=== PATIENT | female | born 1945 | race Caucasian/White ===

== ENCOUNTER → 2016-07-08 | Outpatient (CLI) | payer MEDICARE ==
[2016-07-08 10:45] LABS: Creatine Kinase 188 U/L (30-135)
[2016-07-08 13:13] LABS: Vitamin B12 452 pg/mL
== END | disposition home or self-care (01) ==
LOC: LABWHC1 09:48
PROVIDERS: ATTEND Psychiatry & Neurology Neurology
DX: E53.9 Vitamin B deficiency, unspecified (principal); R94.8 Abnormal results of function studies of other organs and systems
CPT/HCPCS: 36415; 82550; 82607

== ENCOUNTER → 2016-08-12 | Outpatient (CLI) | payer MEDICARE | END | disposition home or self-care (01) | LOC: LABWHC1 07:13 | PROVIDERS: ATTEND Psychiatry & Neurology Neurology | DX: M60.9 Myositis, unspecified (principal) | CPT/HCPCS: 36415; 82550 ==

== ENCOUNTER → 2016-09-30 | Outpatient (CLI) | payer MEDICARE | LOC: LABWHC1 08:25 | PROVIDERS: ATTEND Psychiatry & Neurology Neurology | DX: M60.9 Myositis, unspecified (principal) | CPT/HCPCS: 36415; 82550 ==

== ENCOUNTER → 2016-10-17 | Outpatient (CLI) | payer MEDICARE ==
--- NOTE | 2016-10-18 08:12 | US ---
EXAMINATION TYPE: US kidneys/renal and bladder DATE OF EXAM: 10/17/2016 4:45 PM COMPARISON: NONE HISTORY: 71-year-old female with N39.0 FREQ AND RECURRENT URINATION. FINDINGS: VENEREAL DISEASE CONTROL HEAD NOTES: Large body habitus. This would cause technical limitations. Right Kidney: 10.9 X 4.6 X4.6 cm without hydronephrosis. Left Kidney: 10.8 x 4.3 x 4.8 cm with mild pelviectasis but no juan calyceal dilatation. There is abnormally increased Post Void Residual Volume: 173 mL. On post void image, there is a 1.2 x 0.9 x 2.5 cm mural based structure seen along the left posterior bladder base that shows no interna l vascularity. Both ureteral jets are seen. IMPRESSION: 1. Mild pelviectasis on the left without juan hydronephrosis on either side. 2. Findings suggest urinary retention with a postvoid bladder volume of 173 mL. 3. On the post void images, there is a 2.5 cm mural based structure along the left posterior bladder base. This area seems to persist arguing against artifact. Some debris is possible. Correlate with ur inalysis and urine cytology to exclude the possibility of a urothelial neoplasm. Direct visualization as indicated.
== END | disposition home or self-care (01) ==
LOC: RADUSWWP 16:06
PROVIDERS: ATTEND Internal Medicine
DX: N28.89 Other specified disorders of kidney and ureter (principal); R93.41 Abnormal radiologic findings on diagnostic imaging of renal pelvis, ureter, or bladder; N39.0 Urinary tract infection, site not specified
CPT/HCPCS: 76770

== ENCOUNTER → 2017-12-16 | Outpatient (CLI) | payer MEDICARE ==
[2017-12-16 13:45] VITALS: BP 147/86; PULSE 69; RESP 18; TEMP 98; BMI 39.1
--- NOTE | 2017-12-16 14:27 | P.HPOB ---
History of Present Illness H&P Date: 12/16/17 Chief Complaint: The patient is here for her routine gynecologic exam and mammogram. This is a 72-year-old with an LMP [id number]. The patient has been having frequent urinary tract infections about every 1 to 2 months. She states it starts with a low back ache then urinary frequency and ,if allowed to progress , can cause dysuria. She is otherwise without complaints. She denies any postmenopausal bleeding. She is not sexually active. Review of Systems She has lost about 16 pounds over the last 2 years. She denies respiratory, cardiac and G.I. problems. She denies maltreatment or problems with falling. : she denies any significant problems with urinary leakage. But has had frequent urinary tract infections as above. Past Medical History Past Medical History: Asthma, Diabetes Mellitus (2), GERD/Reflux, Hyperlipidemia , Hypertension Additional Past Medical History / Comment(s): Osteopenia, seasonal allergies. 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 History of Any Multi-Drug Resistant Organisms: None Reported Past Surgical History: Appendectomy, Cholecystectomy, Tonsillectomy Additional Past Surgical History / Comment(s): carpal tunnel. Colonoscopy 2011. Past Anesthesia/Blood Transfusion Reactions: No Reported Reaction Past Psychological History: No Psychological Hx Reported Smoking Status: Never smoker Past Alcohol Use History: None Reported Past Drug Use History: None Reported Additional History: She is single and is not sexually active. She is a retired schoolteacher. - Past Family History Father Family Medical History: Diabetes Mellitus, Myocardial Infarction ([place]) Additional Family Medical History / Comment(s): Parkinsons, Alzhiemers Mother Family Medical History: Cancer Additional Family Medical History / Comment(s): lung cancer Medications and Allergies Home Medications Medication Instructions Recorded Confirmed Type Baclofen [Lioresal] 10 mg PO DAILY 12/16/17 12/16/17 History Budesonide/Formoterol Fumarate 1 puff INHALATION BID 12/16/17 12/16/17 History [Symbicort 80-4.5 Mcg Inhaler] Fluticasone Furoate [Flonase 1 spray EA NOSTRIL BID 12/16/17 12/16/17 History Sensimist] Levocetirizine Dihydrochloride 5 mg PO DAILY 12/16/17 12/16/17 History [Xyzal] Ramipril 10 mg PO DAILY 12/16/17 12/16/17 History Simvastatin [Zocor] 20 mg PO DAILY 12/16/17 12/16/17 History metFORMIN HCL [Glucophage] 500 mg PO TID 12/16/17 12/16/17 History sitaGLIPtin [Januvia] 100 mg PO DAILY 12/16/17 12/16/17 History Allergies Allergy/AdvReac Type Severity Reaction Status Date / Time codeine Allergy Rash/Hives Verified 12/16/17 13:41 Penicillins Allergy Swelling Verified 12/16/17 13:41 Sulfa (Sulfonamide Allergy Rash/Hives Verified 12/16/17 13:41 Antibiotics) Exam - Vital Signs Vital signs: Vital Signs Temp Pulse Resp BP 12/16/17 13:41 98 F 69 18 147/86 Intake and Output 12/15/17 12/16/17 12/16/17 22:59 06:59 14:59 Other: Weight 97.069 kg Height 5'2", BMI 39.1. This is a well-developed well-nourished heavyset white female who is alert and oriented times 3 in no acute distress. HEENT: Within normal limits. NECK: Supple without mass or thyromegaly. CHEST AND LUNGS: Clear to auscultation. HEART: Regular rate and rhythm. BREASTS: Are without mass or discharge. AXILLARY EXAM: Negative for adenopathy. BACK: Negative for CVA tenderness. ABDOMEN: Soft, mildly obese, nontender, without palpable masses. PELVIC EXAM: Normal external genitalia with mild atrophy. Cervix and vagina appear normal with mild atrophy. There is no unusual discharge. There is no evidence of prolapse. The uterus is midposition, nongravid size and nontender. There are no palpable adnexal masses or tenderness. RECTAL EXAM: rectovaginal exam is negative for mass or tenderness and is negative for occult blood. EXTREMITIES: Nontender. IMPRESSION: 1. 72-year-old menopausal female with normal gynecologic exam. 2. Frequent urinary tract infections. 3. History of osteopenia. Status post 8 years bisphosphonate use in the past. PLAN: 1. Pap smear was performed. 2. Breast awareness was discussed. 3. screening Mammogram will be done today. 4. Osteoporosis prevention was discussed. I've recommended bone density screening. She would liked to do this next year. 5. We've discussed the importance of not holding urine too long. I also recommended that she spent more time on the toilet when she does urinate to try to empty more completely with relaxation and not bearing down. She will also try to identify any activities this seem to be associated with UTIs. We can consider prophylactic macrodantin if such an activity is identified. 6. She will return in one year.
--- NOTE | 2017-12-18 12:11 | MM ---
Reason for exam: screening (asymptomatic). Last mammogram was performed 2 years and 8 months ago. History: Patient is postmenopausal. Family history of breast cancer in sister at age 65. Physical Findings: A clinical breast exam by your physician is recommended on an annual basis and results should be correlated with mammographic findings. MG 3D Screening Mammo W/Cad Bilateral CC and MLO view(s) were taken. Prior study comparison: April 07, 2015, right breast MG work up mamm w CAD RT. April 04, 2015, bilateral MG screening mammo w CAD. Focal asymmetry in the right middle MLO view. No significant changes when compared with prior studies. ASSESSMENT: Benign, BI-RAD 2 RECOMMENDATION: Routine screening mammogram of both breasts in 1 year.
== END | disposition home or self-care (01) ==
LOC: WWCWWP 13:17
PROVIDERS: ATTEND Obstetrics & Gynecology
DX: Z12.31 Encounter for screening mammogram for malignant neoplasm of breast (principal)
CPT/HCPCS: 77063; 77067

== ENCOUNTER → 2018-08-10 | Outpatient (CLI) | payer MEDICARE ==
--- NOTE | 2018-08-10 14:13 | US ---
EXAMINATION TYPE: US kidneys/renal and bladder DATE OF EXAM: 08/10/2018 COMPARISON: 10/17/2016 ultrasound CLINICAL HISTORY: N39.0 Urinary tract infection R31.9 Hematuria. Diabetic. Patient stated had gross h ematuria 06-23-18. EXAM MEASUREMENTS: Right Kidney: 11.0 x 5.3 x 4.6 cm Left Kidney: 10.6 x 5.5 x 4.0 cm Post Void Residual Volume: 74.3 mL Right Kidney: No hydronephrosis or masses seen; small amount of free fluid seen adjacent to right mich al mid periphery and may be sonographic "sweat sign" suggesting renal failure Left Kidney: left lower pole exophytic simple cyst seen = 1.3 x 1.4 x 1.1cm . Not identified previous ly. Bladder: wnl Bilateral Jets seen: not seen after 3 minute observation Normal Post Void Residual: no as volume is greater than 50.0ml. There is no evidence for hydronephrosis at this point in time. No nephrolithiasis is seen. The urina ry bladder is anechoic. IMPRESSION: 1. Small amount of fluid adjacent to the right kidney. This finding has been associated with renal fa ilure. Correlate with laboratory results. 2. Simple cyst lower pole left kidney
== END | disposition home or self-care (01) ==
LOC: RADUSWWP 10:53
PROVIDERS: ATTEND Urology
DX: N28.1 Cyst of kidney, acquired (principal); N39.0 Urinary tract infection, site not specified; Z88.2 Allergy status to sulfonamides; Z88.5 Allergy status to narcotic agent; Z88.0 Allergy status to penicillin
CPT/HCPCS: 76770

== ENCOUNTER → 2018-10-20 | Outpatient (CLI) | payer MEDICARE ==
[2018-10-20 16:23] LABS: HCT 50.1 % (34.0-46.0); HGB 15.8 gm/dL (11.4-16.0); Hypochromasia Slight; MCH 29.1 pg (25.0-35.0); MCHC 31.5 g/dL (31.0-37.0); MCV 92.4 fL (80.0-100.0); Mean Platelet Volume 8.4; Platelet Count 303 k/uL (150-450); RBC 5.43 m/uL (3.80-5.40); RDW 13.5 % (11.5-15.5); WBC 17.2 k/uL (3.8-10.6)
[2018-10-20 16:35] LABS: Appearance,Urine Clear (Clear); Bilirubin,Urine Negative (Negative); Blood,Urine Negative (Negative); Color,Urine Yellow; Glucose,Urine (UA) Negative (Negative); Ketones,Urine Negative (Negative); Leukocyte Esterase,Urine Moderate (Negative); Mucus,Urine Rare /hpf; Nitrite,Urine Negative (Negative); PH, Urine 5.5 (5.0-8.0); Protein,Urine Negative (Negative); Specific Gravity,Urine 1.022 (1.001-1.035); Squamous Epithelial Cell,Urine 2 /hpf (0-4); Urobilinogen,Urine <2.0 mg/dL (<2.0); WBC,Urine 2 /hpf (0-5)
[2018-10-20 16:41] LABS: ALT 29 U/L (9-52); AST 29 U/L (14-36); Albumin 4.4 g/dL (3.5-5.0); Alkaline Phosphatase 78 U/L (38-126); Anion Gap 9 mmol/L; Blood Urea Nitrogen 24 mg/dL (7-17); Calcium 10.8 mg/dL (8.4-10.2); Carbon Dioxide 26 mmol/L (22-30); Chloride 102 mmol/L (98-107); Glucose 178 mg/dL (74-99); Potassium 5.3 mmol/L (3.5-5.1); Sodium 137 mmol/L (137-145); Total Bilirubin 0.3 mg/dL (0.2-1.3)
[2018-10-20 16:42] LABS: Prothrombin Time 10.3 sec (9.0-12.0)
[2018-10-20 16:45] LABS: Partial Thromboplastin Time 21.8 sec (22.0-30.0)
== END | disposition home or self-care (01) ==
LOC: LABPAT 15:32
PROVIDERS: ATTEND Orthopaedic Surgery
DX: Z01.818 Encounter for other preprocedural examination (principal); Z01.812 Encounter for preprocedural laboratory examination; Z79.01 Long term (current) use of anticoagulants
CPT/HCPCS: 36415; 80053; 81001; 85027; 85610; 85730; 87070; 93005

== ENCOUNTER → 2019-01-25 | Outpatient (CLI) | payer MEDICARE | END | disposition home or self-care (01) | DX: Z53.9 Procedure and treatment not carried out, unspecified reason (principal) ==

== ENCOUNTER → 2019-01-26 | Outpatient (CLI) | payer MEDICARE ==
[2019-01-26 11:45] LABS: Basophils # (A) 0.1 k/uL (0-0.2); Basophils % (A) 1 %; Eosinophils # (A) 0.3 k/uL (0-0.7); Eosinophils % (A) 3 %; HCT 48.5 % (34.0-46.0); HGB 15.3 gm/dL (11.4-16.0); Lymphocytes # (A) 2.7 k/uL (1.0-4.8); Lymphocytes % (A) 29 %; MCH 29.2 pg (25.0-35.0); MCHC 31.6 g/dL (31.0-37.0); MCV 92.5 fL (80.0-100.0); Mean Platelet Volume 8.8; Monocytes # (A) 0.6 k/uL (0-1.0); Monocytes % (A) 7 %; Neutrophils # (A) 5.4 k/uL (1.3-7.7); Neutrophils % (A) 58 %; Platelet Count 203 k/uL (150-450); RBC 5.24 m/uL (3.80-5.40); RDW 15.4 % (11.5-15.5); WBC 9.3 k/uL (3.8-10.6)
[2019-01-26 19:13] LABS: African American GFR (CKD) 73.5 (60.0-200.0); Anion Gap 12.4 mmol/L (4.00-12.00); BUN/Creat Ratio 21.11 Ratio (12.00-20.00); Carbon Dioxide 25.6 mmol/L (21.6-31.8); Non-African American GFR(CKD) 63.4 (60.0-200.0); Potassium 4.7 mmol/L (3.5-5.5)
== END | disposition home or self-care (01) ==
LOC: LABWHC1 10:44
PROVIDERS: ATTEND Obstetrics & Gynecology
DX: Z01.812 Encounter for preprocedural laboratory examination (principal)
CPT/HCPCS: 36415; 80048; 85025; 86850; 86900; 86901

== ENCOUNTER 2019-02-04 05:59 | Day surgery (SDC) | payer MEDICARE ==
[~2019-02-04 05:59] MED LIST: LIDOCAINE 1% 20 ML VIAL (10MG/ML) FOR IV START INTRADERMA PRN; MIDAZOLAM 2 MG/2 ML VIAL IV PRN; SCOPOLAMINE 1.5MG/72HR PATCH TRANSDERM ONE
[2019-02-04] MEDS: LACTATED RINGERS 1,000 ML IV SCH ×2 (06:40→06:44)
[2019-02-04 06:44] LABS: Glucose,Whole Blood 136 mg/dL (75-99)
[2019-02-04] MEDS: DEXAMETHASONE SOD PHOSPHATE 10 MG/ML 1 ML VIAL IV ONE ×2 (06:45→10:25)
[2019-02-04] MEDS: ONDANSETRON 4 MG/2 ML VIAL IVP ONE ×2 (06:45→10:25)
--- NOTE | 2019-02-04 06:58 | P.HPOB ---
History of Present Illness H&P Date: 02/04/19 Chief Complaint: cystocele and recurrent UTI 73 year old presents for [facility] with da manuel, possible anterior repair and diagnostic cystoscopy. She has a second degree cystocele that we believe is causing her to have recurrent UTI's. Review of Systems All systems: negative Constitutional: Denies chills, Denies fever Eyes: denies blurred vision, denies pain Ears, nose, mouth and throat: Denies headache, Denies sore throat Cardiovascular: Denies chest pain, Denies shortness of breath Respiratory: Denies cough Gastrointestinal: Denies abdominal pain, Denies diarrhea, Denies nausea, Denies vomiting Genitourinary: Denies dysuria, Denies hematuria Musculoskeletal: Denies myalgias Integumentary: Denies pruritus, Denies rash Neurological: Denies numbness, Denies weakness Psychiatric: Denies anxiety, Denies depression Endocrine: Denies fatigue, Denies weight change Past Medical History Past Medical History: Asthma, Diabetes Mellitus, GERD/Reflux, Hyperlipidemia, Hypertension, Osteoarthritis ([place]), Thyroid Disorder Additional Past Medical History / Comment(s): Osteopenia, seasonal allergies. HX UTI'S. HAS BLADDER PROLAPSE. History of Any Multi-Drug Resistant Organisms: None Reported Past Surgical History: Appendectomy, Cholecystectomy, Tonsillectomy Additional Past Surgical History / Comment(s): [facility]. Colonoscopy 2011. Past Anesthesia/Blood Transfusion Reactions: Postoperative Nausea & Vomiting (PONV) Smoking Status: Never smoker - Past Family History Father Family Medical History: Diabetes Mellitus, Myocardial Infarction ([place]) Additional Family Medical History / Comment(s): Parkinsons, Alzhiemers Mother Family Medical History: Cancer Additional Family Medical History / Comment(s): lung cancer Sister(s) Family Medical History: Cancer Medications and Allergies Home Medications Medication Instructions Recorded Confirmed Type Baclofen [Lioresal] 10 mg PO HS 12/16/17 02/04/19 History Levocetirizine Dihydrochloride 5 mg PO HS 12/16/17 02/04/19 History [Xyzal] Ramipril 10 mg PO DAILY 12/16/17 02/04/19 History Simvastatin [Zocor] 40 mg PO DAILY 12/16/17 02/04/19 History metFORMIN HCL [Glucophage] 1,000 mg PO DAILY 12/16/17 02/04/19 History sitaGLIPtin [Januvia] 100 mg PO DAILY 12/16/17 02/04/19 History Aspirin EC [Ecotrin Low Dose] 81 mg PO DAILY 10/22/18 02/04/19 History Aspirin/Acetaminophen/Caffeine 1 each PO DAILY PRN 10/22/18 02/04/19 History [Excedrin Migraine Caplet] Budesonide-Formot 160-4.5 Mcg 2 puff INHALATION BID 10/22/18 02/04/19 History [Symbicort 160-4.5 Mcg Inhaler] Calcium Carbonate/Vitamin D3 1 each PO BID 10/22/18 02/04/19 History [Calcium 600-Vit D3 400 Tablet] Cranberry 4200 Mg 3 cap PO BID 10/22/18 02/04/19 History Cyanocobalamin (Vitamin B-12) 1,000 mcg PO MOWEFR 10/22/18 02/04/19 History [Vitamin B-12] Ibuprofen [Motrin Ib] 400 mg PO Q8H PRN 10/22/18 02/04/19 History Ipratropium [place] 0.06%Nasal 2 spray EA NOSTRIL BID 10/22/18 02/04/19 History [Atrovent Nasal 0.06%] L.acidoph,Paracasei, B.lactis 1 each PO DAILY 10/22/18 02/04/19 History [Probiotic] Levothyroxine Sodium [Synthroid] 50 mcg PO DAILY 10/22/18 02/04/19 History Multivitamins, Thera [Multivitamin 1 tab PO DAILY 10/22/18 02/04/19 History (formulary)] Natural Calm (Magnesium) 1 tsp PO HS 10/22/18 02/04/19 History [place]-3 Fatty Acids/Fish Oil [Fish 1 each PO BID 10/22/18 02/04/19 History Oil 1,000 mg Softgel] Ranitidine HCl [Zantac] 150 mg PO DAILY 10/22/18 02/04/19 History Acetaminophen Tab [Tylenol Tab] 650 mg PO Q4H PRN 01/28/19 02/04/19 History metFORMIN HCL [Glucophage] 500 mg PO HS 01/28/19 02/04/19 History Allergies Allergy/AdvReac Type Severity Reaction Status Date / Time codeine Allergy Rash/Hives Verified 02/04/19 06:21 Penicillins Allergy Swelling Verified 02/04/19 06:21 Sulfa (Sulfonamide Allergy Rash/Hives Verified 02/04/19 06:21 Antibiotics) Exam Osteopathic Statement: *. No significant issues noted on an osteopathic structural exam other than those noted in the History and Physical/Consult. Vital Signs Temp Pulse Resp BP Pulse Ox 02/04/19 06:26 97.7 F 77 18 155/68 95 HEart: RRR Lungs: CTAB ABdomen: soft, nontender Extremeties: neg alexus's Results Abnormal Lab Results - Last 24 Hours (Table) 02/04/19 Range/Units 06:36 POC Glucose (mg/dL) 136 H (75-99) mg/dL Assessment and Plan (1) Cystocele with uterine prolapse Current Visit: Yes Status: Acute Code(s): N81.4 - UTEROVAGINAL PROLAPSE, UNSPECIFIED SNOMED Code(s): 643032483 Plan: 1. Total Laparoscopic Hysterectomy with Bilateral Salpingo-oopherectomy using da manuel, anterior repair and diagnostic cystoscopy.
[2019-02-04] MEDS ORDERED: CLINDAMYCIN 600 MG in DEXTROSE 5% IN WATER 50 ML IVPB STA ×2 (07:03)
[2019-02-04] MEDS ORDERED: NEOSTIGMINE 1 MG/ML 10 ML VIAL ONE (07:11)
[2019-02-04] MEDS ORDERED: MIDAZOLAM 2 MG/2 ML VIAL ONE (07:11)
[2019-02-04] MEDS ORDERED: ROCURONIUM BROMIDE 10 MG/ML 10 ML VIAL IV ONE (07:11)
[2019-02-04] MEDS ORDERED: PROPOFOL 10 MG/ML 20 ML VIAL IV ONE (07:11)
[2019-02-04] MEDS ORDERED: LIDOCAINE 1% INJ 10MG/ML (20 ML MDV) ONE (07:11)
[2019-02-04] MEDS ORDERED: fentaNYL (PF) 50 MCG/ML 2 ML AMP ONE (07:11)
[2019-02-04] MEDS ORDERED: GLYCOPYRROLATE 0.2 MG/ML 2 ML VIAL ONE (07:11)
[2019-02-04] MEDS ORDERED: BUPIVACAINE (PF) 0.5% 30 ML VIAL SQ ONE (07:45)
[2019-02-04] MEDS ORDERED: BACITRACIN 500 UNIT/GM OINT 28.4 GM TUBE TOPICAL ONE (08:28)
--- NOTE | 2019-02-04 08:58 | P.OP ---
Date of Procedure: 02/04/19 Preoperative Diagnosis: 1. cystocele with uterine prolapse Postoperative Diagnosis: 1. cystocele with uterine prolapse Procedure(s) Performed: Total laparoscopic hysterectomy bilateral salpingo-oophorectomy using da Rio Anesthesia: JAIR Surgeon: Tanvi Sneed Leather Roller #1: Jose Smith Estimated Blood Loss (ml): 5 IV fluids (ml): 1,200 Urine output (ml): 300 Pathology: other (Uterus, cervix, bilateral tubes and ovaries) Condition: stable Disposition: PACU Operative Findings: Grade 2 cystocele with uterine prolapse. After hysterectomy the cystocele was barely a grade 1, therefore, no anterior repair was found to be needed. Normal uterus, tubes, ovaries. Description of Procedure: Patient taken the operating room where general anesthesia was obtained without difficulty. She is prepped and draped in normal sterile fashion dorsal lithotomy position, legs placed in the Kvng stirrups. Weighted speculum placed in the vagina and the anterior lip the cervix was grasped with single-tooth tenaculum. The uterus sounded to 6 cm and the cervix diameter was 2.5 cm. The appropriate manipulator tip and ring were placed on the Agatha manipulator. The Agatha manipulator was then placed in the uterus. Lane catheter was also placed. Attention was then turned to the abdomen and gloves were changed. A 5 mm supraumbilical incision was made the scalpel and a 5 mm optical trocar was placed under direct visualization. 10 cm to the right of this and 2 cm down a 5 mm incision was made and 8 mm da [place] port was placed under direct visualization. Same measurements on the opposite side of the patient's abdomen, the 5 mm incision was made and 8 mm [place] port was placed under direct visualization. In the left upper quadrant a 10 mm incision was made and a 10 mm optical trocar was placed under direct visualization. The 5 mm optical trocar was then replaced with the 8 mm da [place] camera port. The robot was docked on patient's right side. The camera was introduced and then the monopolar curved scissor and [place] bipolar placed under direct visualization. I broke scrub and went to the physician console. The left infundibulopelvic ligament was cauterized with the [place] bipolar and cut with monopolar curved scissors. The left round ligament was cauterized with the [place] bipolar and cut with monopolar curved scissors. The posterior leaf of the broad ligament was taken down using the monopolar curved scissors. Anterior leaf of the broad ligament was then taken down using the monopolar curved scissors. The uterine artery was cauterized with the [place] bipolar and cut with monopolar curved scissors. The bladder flap was then started using the monopolar curved scissors. Attention was then turned to the right side of the patient's anatomy and the right infundibular pelvic ligament was cauterized with the [place] bipolar and cut with monopolar curved scissors. The right round ligament was cauterized with the [place] bipolar and cut with monopolar curved scissors. Posterior leaf of the broad ligament was taken down using the monopolar curved scissors and the anterior leaf was taken down using the monopolar curved scissors. The uterine artery was cauterized the [place] bipolar cut with monopolar curved scissors. The bladder flap was then finished on this side. Anterior colpotomy was made using the monopolar curved scissors. The rest of the uterus was from the vaginal cuff by following the ring around with the monopolar curved scissors through the uterosacral ligaments back to the anterior portion. Once the uterus and cervix were amputated they were pulled through the vaginal cuff. Hemostasis was assured. The instruments were changed for the [place] forcep and the leslie suture cut. The vaginal cuff was then closed using O stratafix barbed suture in a running fashion. Hemostasis was again assured and the pelvis was irrigated. All instruments were removed from the abdomen and the robot was undocked. I scrubbed back in to the procedure. Examination of the vagina now revealed barely a grade 1 cystocele. The removal of the uterus and repair of the vaginal cuff pulled the cystocele up and is no longer grade 2. At this time it was determined that anterior repair was not necessary. I then performed a cystoscopy. There were jets from both ureteral orifices. Catheter was replaced. The abdominal incisions were closed with 4-0 Vicryl in a subcuticular fashion. Patient tolerated the procedure well, sponge and instrument counts correct 2 and she was taken to recovery room in stable con dition condition
[2019-02-04] MEDS: HYDROmorphone 0.5 MG/0.5 ML SYRINGE IVP PRN ×2 (09:01→09:20)
[2019-02-04 09:33] LABS: Glucose,Whole Blood 198 mg/dL (75-99)
[2019-02-04] MEDS ORDERED: HYDROcodone/APAP 5-325MG 1 EACH TAB PO PRN ×2 (09:57)
[2019-02-04] MEDS ORDERED: diphenhydrAMINE 50 MG/ML 1 ML VIAL IVP PRN (09:57)
[2019-02-04] MEDS ORDERED: SIMETHICONE 80 MG CHEWABLE PO PRN (09:57)
[2019-02-04] MEDS ORDERED: METOCLOPRAMIDE 5 MG/ML 2 ML VIAL IVP PRN (09:57)
[2019-02-04] MEDS ORDERED: ONDANSETRON 4 MG/2 ML VIAL IVP PRN (09:57)
[2019-02-04] MEDS: ATORVASTATIN 20 MG TAB PO SCH (11:36)
[2019-02-04] MEDS: metFORMIN 500 MG TAB PO SCH (11:36)
[2019-02-04] MEDS: SENNOSIDES-DOCUSATE SODIUM 1 EACH TAB PO SCH ×2 (11:55→20:40)
[2019-02-04 12:16] VITALS: BMI 37.4
[2019-02-04] MEDS: KETOROLAC 30 MG/ML 1 ML VIAL IVP PRN ×2 (13:32→19:32)
[2019-02-04 14:35] VITALS: RESP 16
[2019-02-04 17:24] LABS: Glucose,Whole Blood 202 mg/dL (75-99)
[2019-02-04] MEDS: INSULIN ASPART (NovoLOG) 100 UNIT/ML VIAL SQ SCH ×2 (17:33→20:39)
[2019-02-04] MEDS: LINAGLIPTIN 5 MG TABLET PO SCH (17:34)
[2019-02-04] MEDS ORDERED: SYMBICORT 160-4.5 MCG INHALER INHALATION SCH ×2 (20:00)
[2019-02-04 20:18] LABS: Glucose,Whole Blood 183 mg/dL (75-99)
[2019-02-04] MEDS: IPRATROPIUM BROMIDE 0.03% EA NOSTRIL SCH (20:41)
[2019-02-04] MEDS ORDERED: LORATADINE 10 MG TAB PO SCH (21:00)
[2019-02-04] MEDS ORDERED: metFORMIN 500 MG TAB PO SCH (21:00)
[2019-02-04] MEDS ORDERED: BACLOFEN 10 MG TAB PO SCH (21:00)
[2019-02-04] MEDS ORDERED: IPRATROPIUM BROMIDE 0.06% NASAL SPRAY (15 ML) EA NOSTRIL SCH (21:00)
[2019-02-05] MEDS: KETOROLAC 30 MG/ML 1 ML VIAL IVP PRN (01:39)
[2019-02-05 06:20] LABS: Glucose,Whole Blood 149 mg/dL (75-99)
[2019-02-05] MEDS ORDERED: LEVOTHYROXINE 50 MCG TAB PO SCH (06:30)
[2019-02-05] MEDS: INSULIN ASPART (NovoLOG) 100 UNIT/ML VIAL SQ SCH (06:37)
[2019-02-05 07:07] LABS: Basophils % (A) 0 %; Eosinophils # (A) 0.1 k/uL (0-0.7); Eosinophils % (A) 1 %; HCT 41.7 % (34.0-46.0); Lymphocytes % (A) 27 %; MCH 28.3 pg (25.0-35.0); MCHC 31.2 g/dL (31.0-37.0); MCV 90.8 fL (80.0-100.0); Mean Platelet Volume 8.5; Monocytes # (A) 0.9 k/uL (0-1.0); Monocytes % (A) 9 %; Neutrophils # (A) 6.6 k/uL (1.3-7.7); Neutrophils % (A) 61 %; Platelet Count 210 k/uL (150-450); RDW 14.1 % (11.5-15.5); WBC 10.9 k/uL (3.8-10.6)
[2019-02-05 08:33] VITALS: BP 149/77; PULSE 60; TEMP 97.7
--- NOTE | 2019-02-05 08:39 | P.DS ---
Providers Date of admission: 02/04/19 Expected date of discharge: 02/05/19 Attending physician: Tanvi Sneed Primary care physician: Raul Carpiooa - Discharge Diagnosis(es) (1) Cystocele with uterine prolapse Current Visit: Yes Status: Resolved (2) History of robot-assisted laparoscopic hysterectomy Current Visit: Yes Status: Acute Hospital Course: Patient presented with cystocele and uterine prolapse. She underwent a total laparoscopic hysterectomy bilateral salpingo-oophorectomy using da Rio and a diagnostic cystoscopy. Postoperatively her pain was minimal and controlled with Toradol. She is ambulating and voiding without difficulty. She was passing flatus and tolerating regular diet. Her incisions are clean, dry, intact. She will be discharged home postoperative day #1 in stable condition to follow-up with me in 4 weeks. Plan - Discharge Summary Discharge Rx Participant: Yes New Discharge Prescriptions: New Ibuprofen [Motrin] 600 mg PO Q6HR PRN #30 tab PRN Reason: Mild Pain Or Fever >= 100.5 HYDROcodone/APAP 5-325MG [[place] 5-325] 1 each PO Q4HR PRN #10 tab PRN Reason: MILD Pain No Action Baclofen [Lioresal] 10 mg PO HS sitaGLIPtin [Januvia] 100 mg PO DAILY metFORMIN HCL [Glucophage] 1,000 mg PO DAILY Simvastatin [Zocor] 40 mg PO DAILY Ramipril 10 mg PO DAILY Levocetirizine Dihydrochloride [Xyzal] 5 mg PO HS Aspirin/Acetaminophen/Caffeine [Excedrin Migraine Caplet] 1 each PO DAILY PRN PRN Reason: MIGRAINES [place]-3 Fatty Acids/Fish Oil [Fish Oil 1,000 mg Softgel] 1 each PO BID Multivitamins, Thera [Multivitamin (formulary)] 1 tab PO DAILY Cyanocobalamin (Vitamin B-12) [Vitamin B-12] 1,000 mcg PO MOWEFR Calcium Carbonate/Vitamin D3 [Calcium 600-Vit D3 400 Tablet] 1 each PO BID Ranitidine HCl [Zantac] 150 mg PO DAILY L.acidoph,Paracasei, B.lactis [Probiotic] 1 each PO DAILY Aspirin EC [Ecotrin Low Dose] 81 mg PO DAILY Budesonide-Formot 160-4.5 Mcg [Symbicort 160-4.5 Mcg Inhaler] 2 puff INHALATION BID Ipratropium [place] 0.06%Nasal [Atrovent Nasal 0.06%] 2 spray EA NOSTRIL BID Levothyroxine Sodium [Synthroid] 50 mcg PO DAILY Natural Calm (Magnesium) 1 tsp PO HS Ibuprofen [Motrin Ib] 400 mg PO Q8H PRN PRN Reason: Pain Cranberry 4200 Mg 3 cap PO BID Acetaminophen Tab [Tylenol Tab] 650 mg PO Q4H PRN PRN Reason: Pain metFORMIN HCL [Glucophage] 500 mg PO HS Discharge Medication List Baclofen [Lioresal] 10 mg PO HS 12/16/17 [History] Levocetirizine Dihydrochloride [Xyzal] 5 mg PO HS 12/16/17 [History] Ramipril 10 mg PO DAILY 12/16/17 [History] Simvastatin [Zocor] 40 mg PO DAILY 12/16/17 [History] metFORMIN HCL [Glucophage] 1,000 mg PO DAILY 12/16/17 [History] sitaGLIPtin [Januvia] 100 mg PO DAILY 12/16/17 [History] Aspirin EC [Ecotrin Low Dose] 81 mg PO DAILY 10/22/18 [History] Aspirin/Acetaminophen/Caffeine [Excedrin Migraine Caplet] 1 each PO DAILY PRN 10/22/18 [History] Budesonide-Formot 160-4.5 Mcg [Symbicort 160-4.5 Mcg Inhaler] 2 puff INHALATION BID 10/22/18 [History] Calcium Carbonate/Vitamin D3 [Calcium 600-Vit D3 400 Tablet] 1 each PO BID 10/22/18 [History] Cranberry 4200 Mg 3 cap PO BID 10/22/18 [History] Cyanocobalamin (Vitamin B-12) [Vitamin B-12] 1,000 mcg PO MOWEFR 10/22/18 [History] Ibuprofen [Motrin Ib] 400 mg PO Q8H PRN 10/22/18 [History] Ipratropium [place] 0.06%Nasal [Atrovent Nasal 0.06%] 2 spray EA NOSTRIL BID 10/22/18 [History] L.acidoph,Paracasei, B.lactis [Probiotic] 1 each PO DAILY 10/22/18 [History] Levothyroxine Sodium [Synthroid] 50 mcg PO DAILY 10/22/18 [History] Multivitamins, Thera [Multivitamin (formulary)] 1 tab PO DAILY 10/22/18 [History] Natural Calm (Magnesium) 1 tsp PO HS 10/22/18 [History] [place]-3 Fatty Acids/Fish Oil [Fish Oil 1,000 mg Softgel] 1 each PO BID 10/22/18 [History] Ranitidine HCl [Zantac] 150 mg PO DAILY 10/22/18 [History] Acetaminophen Tab [Tylenol Tab] 650 mg PO Q4H PRN 01/28/19 [History] metFORMIN HCL [Glucophage] 500 mg PO HS 01/28/19 [History] HYDROcodone/APAP 5-325MG [[place] 5-325] 1 each PO Q4HR PRN #10 tab 02/05/19 [Rx] Ibuprofen [Motrin] 600 mg PO Q6HR PRN #30 tab 02/05/19 [Rx] Follow up Appointment(s)/Referral(s): Tanvi Sneed DO [Doctor of Osteopathic Medicine] - 4 Weeks Discharge Disposition: HOME SELF-CARE
[2019-02-05] MEDS ORDERED: ACETAMINOPHEN TAB 325 MG TAB PO PRN (08:53)
[2019-02-05] MEDS ORDERED: FAMOTIDINE 20 MG TAB PO SCH (09:00)
[2019-02-05] MEDS ORDERED: LISINOPRIL 20 MG TAB PO SCH (09:00)
[2019-02-05] MEDS: SENNOSIDES-DOCUSATE SODIUM 1 EACH TAB PO SCH (09:02)
[2019-02-05] MEDS: IPRATROPIUM BROMIDE 0.03% EA NOSTRIL SCH (09:02)
[2019-02-05] MEDS: metFORMIN 500 MG TAB PO SCH (09:03)
[2019-02-05] MEDS: ATORVASTATIN 20 MG TAB PO SCH (09:04)
[2019-02-05] MEDS: LINAGLIPTIN 5 MG TABLET PO SCH (09:06)
== END 2019-02-05 10:54 | disposition home or self-care (01) ==
LOC: OR 05:59 → 6PED 08:50 → OR 02-05 10:54
PROVIDERS: ATTEND Obstetrics & Gynecology
DX: N81.4 Uterovaginal prolapse, unspecified (principal); J45.909 Unspecified asthma, uncomplicated; K21.9 Gastro-esophageal reflux disease without esophagitis; E78.5 Hyperlipidemia, unspecified; E11.9 Type 2 diabetes mellitus without complications; I10 Essential (primary) hypertension; E03.9 Hypothyroidism, unspecified; Z90.49 Acquired absence of other specified parts of digestive tract; M19.90 Unspecified osteoarthritis, unspecified site; M85.80 Other specified disorders of bone density and structure, unspecified site; Z83.3 Family history of diabetes mellitus; Z82.49 Family history of ischemic heart disease and other diseases of the circulatory system; Z80.1 Family history of malignant neoplasm of trachea, bronchus and lung; Z80.8 Family history of malignant neoplasm of other organs or systems; Z79.84 Long term (current) use of oral hypoglycemic drugs; Z79.82 Long term (current) use of aspirin; Z79.890 Hormone replacement therapy; Z79.51 Long term (current) use of inhaled steroids; Z79.899 Other long term (current) drug therapy; Z88.5 Allergy status to narcotic agent; Z88.0 Allergy status to penicillin; Z88.2 Allergy status to sulfonamides
CPT/HCPCS: 58571; 94640; 85025; 88307; 83036; J2250; J1100; J2710; J2405; J2001; J3010; J1885 ×2; J2704; J1170; 86850; 86900; 86901

== ENCOUNTER → 2020-06-07 | Outpatient (CLI) | payer MEDICARE ==
--- NOTE | 2020-06-12 11:02 | MM ---
Reason for exam: screening (asymptomatic). Last mammogram was performed 2 years and 6 months ago. History: Patient is postmenopausal. Family history of breast cancer in sister at age 65. Physical Findings: A clinical breast exam by your physician is recommended on an annual basis and results should be correlated with mammographic findings. MG Screening Mammo w CAD Bilateral CC and MLO view(s) were taken. Prior study comparison: December 16, 2017, bilateral MG 3d screening mammo w/cad. April 07, 2015, right breast MG work up mamm w CAD RT. The breast tissue is heterogeneously dense. This may lower the sensitivity of mammography. No significant changes when compared with prior studies. ASSESSMENT: Benign, BI-RAD 2 RECOMMENDATION: Routine screening mammogram of both breasts in 1 year.
== END | disposition home or self-care (01) ==
LOC: RADMAMWWP 15:54
PROVIDERS: ATTEND Internal Medicine
DX: Z12.31 Encounter for screening mammogram for malignant neoplasm of breast (principal)
CPT/HCPCS: 77067

== ENCOUNTER → 2021-06-13 | Outpatient (CLI) | payer MEDICARE ==
--- NOTE | 2021-06-14 20:18 | BD ---
EXAMINATION TYPE: Axial Bone Density DATE OF EXAM: 06/13/2021 COMPARISON: 2013 CLINICAL HISTORY: Postmenopausal screening Height: 62 Weight: 183.5 FRAX RISK QUESTIONS: Alcohol (3 or more units per day): no Family History (Parent hip fracture): yes Glucocorticoids (More than 3mos): no (Ex: prednisone, prednisolone, methylprednisolone, dexamethasone, and hydrocortisone). History of Fracture in Adulthood: yes Secondary Osteoporosis: 1. Type 1 Diabetes: no 2. Hyperthyroidism: no 3. Menopause before 45: no 4. Malnutrition: no 5. Chronic liver disease: no Rheumatoid Arthritis: no Current Tobacco Use: no RISK FACTORS HISTORY OF: Surgery to Spine/Hip(right/left)/Wrist (right/left): no Family History of Osteoporosis: no Active: yes Diet low in dairy products/other sources of calcium: yes Postmenopausal woman: yes Take estrogen and/or progesterone medications: yes How lon years Lost more than 2 inches in height since high school: no MEDICATIONS: estrogen Thyroid Medications: yes How Lon year Additional History: EXAM MEASUREMENTS: Bone mineral densitometry was performed using the [facility]. Bone mineral density as measured about the Lumbar spine is: ----- L1-L4(G/cm2): 1.351 T Score Values are as follows: ----- L2: 1.1 ----- L3: 3.0 ----- L4: 1.1 ----- L1-L4: 1.4 Bone mineral density has: increased 0.6 % since study of: 01.18.2014 Bone mineral density about the R hip (g/cm2): 0.945 Bone mineral density about the L hip (g/cm2): .0805 T Score values are as follows: -----R Neck: -0.7 -----L Neck: -1.7 -----R Total: 0.0 -----L Total: -0.5 Bone mineral density has: decreased -2.4 % since study of: 01.18.2014 IMPRESSION: Osteopenia (T Score between -2.5 and -1). There is slightly increased risk of fracture and the patient may be considered for treatment. Re-Screen 2-5 years. NOTE: T-SCORE=SD OF THE YOUNG ADULT MEAN.
--- NOTE | 2021-06-15 12:00 | MM ---
Reason for exam: screening (asymptomatic). Last mammogram was performed 1 year ago. History: Patient is postmenopausal. Family history of breast cancer in sister at age 65. Physical Findings: A clinical breast exam by your physician is recommended on an annual basis and results should be correlated with mammographic findings. MG 3D Screening Mammo W/Cad Bilateral CC, MLO, and XCCL view(s) were taken. Prior study comparison: June 07, 2020, bilateral MG screening mammo w CAD. December 16, 2017, bilateral MG 3d screening mammo w/cad. There are scattered fibroglandular densities. There is chronic nodularity in the right breast. No significant changes when compared with prior studies. ASSESSMENT: Benign, BI-RAD 2 RECOMMENDATION: Routine screening mammogram of both breasts in 1 year.
== END | disposition home or self-care (01) ==
LOC: RADBDWWP 15:01
PROVIDERS: ATTEND Internal Medicine
DX: Z12.31 Encounter for screening mammogram for malignant neoplasm of breast (principal); N95.1 Menopausal and female climacteric states; M85.80 Other specified disorders of bone density and structure, unspecified site
CPT/HCPCS: 77063; 77067; 77080

== ENCOUNTER → 2021-08-07 | Outpatient (CLI) | payer MEDICARE | END | disposition home or self-care (01) | LOC: LABWHC1 14:04 | PROVIDERS: ATTEND Psychiatry & Neurology Neurology | DX: G72.9 Myopathy, unspecified (principal); R25.2 Cramp and spasm | CPT/HCPCS: 36415; 82550 ==

== ENCOUNTER → 2022-12-21 | Outpatient (CLI) | payer MEDICARE ==
[2022-12-21 13:32] LABS: Blood Urea Nitrogen 19.7 mg/dL (9.0-27.0); Carbon Dioxide 22.3 mmol/L (21.6-31.8); Chloride 102 mmol/L (96-109); Potassium 4.1 mmol/L (3.5-5.5); Sodium 140 mmol/L (135-145)
[2022-12-21 13:37] LABS: HCT 43.9 % (37.2-46.3); MCH 28.5 pg (27.0-32.0); MCHC 31.9 d/dL (32.0-37.0); MCV 89.4 FL (80.0-97.0); Mean Platelet Volume 12.3 FL (9.5-12.2); NRBC Per 100 WBC 0 X 10*3/uL (0.00-0.01); Platelet Count 235 X 10*3/uL (140-440); RBC 4.91 X 10*6/uL (4.10-5.20); RDW 14.2 % (11.5-14.5); WBC 10.19 X 10*3/uL (4.50-10.00)
== END | disposition home or self-care (01) ==
LOC: LABWHC1 09:28
PROVIDERS: ATTEND Internal Medicine Interventional Cardiology
DX: Z01.812 Encounter for preprocedural laboratory examination (principal); R06.02 Shortness of breath
CPT/HCPCS: 36415; 80051; 82565; 84520; 85027

== ENCOUNTER 2022-12-27 06:09 | Day surgery (SDC) | payer MEDICARE ==
[2022-12-27] MEDS ORDERED: ATORVASTATIN 80 MG TAB PO STA (06:32)
[2022-12-27] MEDS ORDERED: HEPARIN SODIUM,PORCINE 10,000 UNIT in SODIUM CHLORIDE 0.9% 1,000 ML IRRIGATION PRN (06:32)
[2022-12-27] MEDS ORDERED: SODIUM CHLORIDE 0.9% 1,000 ML in EMPTY BAG 1 BAG IV SCH (06:32)
[2022-12-27] MEDS ORDERED: ALPRAZolam 0.25 MG TAB PO PRN (06:32)
[2022-12-27] MEDS ORDERED: ALPRAZolam 0.5 MG TAB PO PRN (06:32)
[2022-12-27] MEDS ORDERED: HEPARIN SODIUM,PORCINE 2,500 UNIT in SODIUM CHLORIDE 0.9% 250 ML IRRIGATION PRN (06:32)
[2022-12-27] MEDS ORDERED: NITROGLYCERIN SL TABS 0.4 MG TAB SUBLINGUAL PRN (06:32)
[2022-12-27] MEDS ORDERED: ASPIRIN 325 MG TAB PO STA (06:32)
[2022-12-27] MEDS ORDERED: SODIUM CHLORIDE 0.9% 1,000 ML IV ONE (06:35)
[2022-12-27 06:59] LABS: Glucose,Whole Blood 139 mg/dL (70-110)
[2022-12-27] MEDS ORDERED: VERAPAMIL 2.5 MG/ML 2 ML AMP ONE (07:11)
[2022-12-27] MEDS ORDERED: HEPARIN SODIUM 1,000 UN/ML (10ML VL) ONE (07:25)
[2022-12-27] MEDS ORDERED: MIDAZOLAM 2 MG/2 ML VIAL IV ONE ×2 (07:34)
[2022-12-27] MEDS ORDERED: LIDOCAINE 1% INJ 10MG/ML (5 ML VIAL-PF) SQ ONE (07:51)
[2022-12-27] MEDS ORDERED: VERAPAMIL SYRINGE (5 MG/10 ML) INTRAARTER ONE (07:52)
[2022-12-27] MEDS: HEPARIN SODIUM 1,000 UN/ML (10ML VL) IV ONE ×4 (07:52→08:46)
[2022-12-27] MEDS ORDERED: CLOPIDOGREL 75 MG TAB ONE (08:19)
[2022-12-27] MEDS ORDERED: CLOPIDOGREL 75 MG TAB PO ONE (08:24)
[2022-12-27] MEDS ORDERED: IOPAMIDOL-370 100ML BTL INJ ONE ×2 (08:28→08:38)
[2022-12-27] MEDS ORDERED: ACETAMINOPHEN TAB 325 MG TAB PO PRN (08:50)
[2022-12-27] MEDS ORDERED: ATROPINE SULFATE 0.1 MG/ML 10ML SYRINGE IV PRN (08:52)
[2022-12-27] MEDS ORDERED: RX INFO: IV CONTRAST WAS GIVEN 1 EACH MISC MISCELLANE PRN (08:52)
[2022-12-27] MEDS ORDERED: ZOLPIDEM 5 MG TAB PO PRN (08:52)
[2022-12-27] MEDS ORDERED: MAG HYDROX/AL HYDROX/SIMETH 30 ML CUP PO PRN (08:52)
[2022-12-27] MEDS ORDERED: NON FORMULARY DRUG (Omega-3 Fatty Acids/Fish Oil [Fish Oil 1,000 Mg Softgel] 1 EACH Capsul PO SCH (09:00)
[2022-12-27] MEDS ORDERED: NON FORMULARY DRUG (Cranberry Fruit Extract [Cranberry] 500 MG Tablet) PO SCH (09:00)
[2022-12-27] MEDS ORDERED: CYANOCOBALAMIN 500 MCG TAB PO SCH (11:30)
[2022-12-27] MEDS: CALCIUM CARB-VIT D 500 MG-5 MCG TAB PO SCH ×2 (11:32→20:48)
[2022-12-27] MEDS: SYMBICORT 80-4.5 MCG INHALER INHALATION SCH ×2 (11:33→20:29)
[2022-12-27] MEDS: CHLORTHALIDONE 25 MG TAB PO SCH (11:33)
[2022-12-27 12:14] LABS: Glucose,Whole Blood 125 mg/dL (70-110)
--- NOTE | 2022-12-27 13:17 | P.PCN ---
Date of Procedure: 12/27/22 Operative Findings: CARDIAC CATHETERIZATION PERFORMING PHYSICIAN: Vladimir Campos MD, RPVI PROCEDURE PERFORMED: 1. Selective right and left coronary angiogram 2. FFR of the left circumflex coronary artery 3. Successful balloon angioplasty of the proximal left circumflex coronary artery 4. Ultrasound-guided access of the right radial artery INDICATION: Shortness of breath and this 77-year-old female patient who underwent a stress test and that came in to be abnormal showing ischemia COMPLICATION: None APPROACH: Right radial artery LEVEL OF SEDATION: Moderate with a sedation length of [] minutes PROCEDURE DESCRIPTION: After obtaining an informed consent, the patient was brought to cardiac biological lab technician. Local anesthesia was performed using lidocaine subcutaneously. The right radial artery was cannulated using Seldinger technique, the guidewire passed easily, following that we advanced a 5-Kosovan sheath dilator assembly, the wire and dilator were removed and sheath was flushed. Following that, 2 mg of verapamil along with 5000 unit heparin were given. Selective right and left coronary angiogram using a 6-Kosovan JR4 and JL 3.5 catheters. Following that we did an FFR and then PTCA of the left circumflex The procedure was completed there was no complication. SELECTIVE CORONARY ANGIOGRAM: The right coronary artery: Large caliber vessel nondominant vessel was mild to moderate disease proximally appears to be in the range of 40% Left main: Is angiographically normal. Bifurcates into LCx and LAD The left circumflex: Proximally has a lesion appeared to be in the range of 60%. We did an FFR and that came in to be ischemic The left anterior descending artery: Large caliber vessel was only mild disease. iFR AND PTCA OF THE LCX: After zeroing the Doppler wire and equalizing between the Doppler wire and guiding catheter which was JL 3.5 guiding catheter we did engage the left main and then the LCx was wired. The iFR came in to be ischemic 0.84. Subsequently I did balloon angioplasty of the LCx using 2 mm balloon. Attempting advancing 2.0 by 12 and 2.0 by 8 mm stent was unsuccessful in spite of using guidewire and jaspreet wire. The left circumflex has extreme angulation takeoff and I did not have guide support from the JL 3.5 guiding catheter. At that point I did an angiogram which showed good angiographic results after only the balloon angioplasty and because we used significant amount of contrast we decided to stop at this point. The patient was completely asymptomatic and hemodynamically stable. The procedure was completed was no complication CONCLUSION: 1. Severe disease involving the proximal LCx. I did perform successful balloon angioplasty with a good angiographic results POSTPROCEDURE MANAGEMENT: Medical treatment using dual antiplatelet therapy and follow-up with the patient
[2022-12-27 14:32] VITALS: RESP 16
[2022-12-27 15:43] VITALS: BMI 30.7
[2022-12-27 17:12] LABS: Glucose,Whole Blood 129 mg/dL (70-110)
[2022-12-27 19:59] LABS: Glucose,Whole Blood 203 mg/dL (70-110)
[2022-12-27] MEDS ORDERED: BACLOFEN 10 MG TAB PO SCH (21:00)
[2022-12-27] MEDS ORDERED: FAMOTIDINE 20 MG TAB PO SCH (21:00)
[2022-12-27] MEDS ORDERED: ATORVASTATIN 80 MG TAB PO SCH (21:00)
[2022-12-27] MEDS ORDERED: METOPROLOL SUCCINATE (ER) 25 MG TAB.ER.24H PO SCH (21:00)
[2022-12-27] MEDS ORDERED: LINAGLIPTIN 5 MG TABLET PO SCH (21:00)
[2022-12-27] MEDS ORDERED: ASPIRIN 81 MG PO SCH (21:00)
[2022-12-28 06:23] LABS: Glucose,Whole Blood 132 mg/dL (70-110)
[2022-12-28] MEDS ORDERED: LEVOTHYROXINE 75 MCG TAB PO SCH (06:30)
[2022-12-28 06:39] LABS: Basophils # (A) 0.1 k/uL (0-0.2); Basophils % (A) 1 %; Eosinophils # (A) 0.3 k/uL (0-0.7); Eosinophils % (A) 3 %; HCT 43.5 % (34.0-46.0); HGB 14.1 gm/dL (11.4-16.0); Lymphocytes # (A) 2.7 k/uL (1.0-4.8); Lymphocytes % (A) 27 %; MCH 29.3 pg (25.0-35.0); MCHC 32.4 g/dL (31.0-37.0); MCV 90.6 fL (80.0-100.0); Mean Platelet Volume 9.6; Monocytes # (A) 0.8 k/uL (0-1.0); Monocytes % (A) 8 %; Neutrophils % (A) 60 %; Platelet Count 224 k/uL (150-450); RDW 13.5 % (11.5-15.5); WBC 10.1 k/uL (3.8-10.6)
[2022-12-28 06:46] LABS: African American GFR (CKD) 89 (>60 ml/min/1.73 sqM); Anion Gap 8 mmol/L; Blood Urea Nitrogen 17 mg/dL (7-17); Calcium 9.5 mg/dL (8.4-10.2); Carbon Dioxide 25 mmol/L (22-30); Chloride 106 mmol/L (98-107); Glucose 132 mg/dL (74-99); Non-African American GFR(CKD) 77 (>60 ml/min/1.73 sqM); Potassium 3.9 mmol/L (3.5-5.1); Sodium 139 mmol/L (137-145)
[2022-12-28] MEDS: SYMBICORT 80-4.5 MCG INHALER INHALATION SCH (07:40)
[2022-12-28 08:50] VITALS: BP 148/84; PULSE 97; TEMP 97.8
[2022-12-28] MEDS: CALCIUM CARB-VIT D 500 MG-5 MCG TAB PO SCH (08:51)
[2022-12-28] MEDS: CHLORTHALIDONE 25 MG TAB PO SCH (08:52)
[2022-12-28] MEDS ORDERED: CLOPIDOGREL 75 MG TAB PO SCH (09:00)
[2022-12-28] MEDS ORDERED: lisinopriL 20 MG TAB PO SCH (09:00)
== END 2022-12-28 10:17 | disposition home or self-care (01) ==
LOC: CATHCVL 06:09 → 6NMEDSUR 08:40 → CATHCVL 12-28 10:17
PROVIDERS: ATTEND Internal Medicine Interventional Cardiology
DX: I25.10 Atherosclerotic heart disease of native coronary artery without angina pectoris (principal); I25.9 Chronic ischemic heart disease, unspecified
CPT/HCPCS: 94760; 93454; 93799; 92920; 80048; 85025; C1769 ×3; C1887 ×2; C1894; C1725; C1874; J2250; J2001; J1644; Q9967

== ENCOUNTER 2023-06-25 12:02 | Inpatient (IN) | payer MEDICARE ==
[2023-06-25] MEDS ORDERED: SODIUM CHLORIDE 0.9% 1,000 ML IV ONE (13:20)
[2023-06-25] MEDS ORDERED: ALPRAZolam 0.5 MG TAB PO PRN (15:38)
[2023-06-25] MEDS ORDERED: ALPRAZolam 0.25 MG TAB PO PRN (15:38)
[2023-06-25] MEDS ORDERED: ASPIRIN 325 MG TAB PO STA (15:38)
[2023-06-25] MEDS ORDERED: HEPARIN SODIUM 1,000 UN/ML (10ML VL) ONE (17:47)
[2023-06-25] MEDS ORDERED: MIDAZOLAM HCL 10 MG/10 ML VIAL IVP ONE (17:53)
[2023-06-25] MEDS ORDERED: LIDOCAINE 1% INJ 10MG/ML (20 ML MDV) SQ ONE (17:54)
[2023-06-25] MEDS ORDERED: IV FLUID CONTINUATION 1,000 ML IV ONE (17:57)
[2023-06-25] MEDS ORDERED: IOPAMIDOL-370 100ML BTL INJ ONE (18:03)
[2023-06-25] MEDS ORDERED: RX INFO: IV CONTRAST WAS GIVEN 1 EACH MISC MISCELLANE PRN (18:10)
--- NOTE | 2023-06-25 18:14 | P.PCN ---
Date of Procedure: 06/25/23 Operative Findings: CARDIAC CATHETERIZATION PERFORMING PHYSICIAN: Vladimir Campos MD, RPVI PROCEDURE PERFORMED: 1. Selective right and left coronary angiogram 2. Left heart catheterization 3. Ultrasound-guided access of the right common femoral artery and right common femoral artery arterial INDICATION: Acute coronary syndrome COMPLICATION: None APPROACH: Right common femoral artery LEVEL OF SEDATION: Moderate with sedation in length of 12 minutes PROCEDURE DESCRIPTION: After obtaining an informed consent, the patient was brought to cardiac optical laboratory technician. Local anesthesia was performed using lidocaine subcutaneously. The right common femoral artery was cannulated using Seldinger technique, the guidewire passed easily, following that we advanced a 6 Greek sheath dilator assembly, the wire and dilator were removed and sheath was flushed. Selective right and left coronary angiogram using a 6-Greek JR4 and JL catheters. Following that we did left heart catheterization using 6-Greek pigtail catheter. The procedure was completed there was no complication. SELECTIVE CORONARY ANGIOGRAM: The right coronary artery: Large caliber vessel and a dominant vessel and appears to be angiographically normal. Distally bifurcates into PDA and PLV branches both appeared to be angiographically normal. Left main: It is angiographically normal. Bifurcates into an ulcer he asked and LAD The left circumflex: Moderate caliber vessel and nondominant dominant vessel. The LCx in the midportion has mild disease only. It gives rises into an OM1 which works as a ramus intermedius and appeared to be angiographically normal. The left anterior descending artery: Large caliber vessel was mild disease only. Gives rises into multiple small diagonal branches HEMODYNAMICS: The LVEDP was 12 mmHg was no significant gradient across aortic valve CONCLUSION: 1. Mild nonobstructive coronary artery disease 2. Normal left-sided filling pressure POSTPROCEDURE MANAGEMENT: Medical treatment
[2023-06-25] MEDS ORDERED: SODIUM CHLORIDE 0.9% 1,000 ML IV SCH (18:15)
[2023-06-25 18:20] LABS: Glucose,Whole Blood 111 mg/dL (70-110)
[2023-06-25 20:07] LABS: Glucose,Whole Blood 142 mg/dL (70-110)
[2023-06-25] MEDS ORDERED: ATORVASTATIN 20 MG TAB PO SCH (21:00)
[2023-06-25] MEDS ORDERED: BACLOFEN 10 MG TAB PO SCH (21:00)
[2023-06-25] MEDS ORDERED: LORATADINE 10 MG TAB PO SCH (21:00)
[2023-06-25] MEDS: CALCIUM CARB-VIT D 500 MG-5 MCG TAB PO SCH (22:08)
[2023-06-26 06:06] LABS: Glucose,Whole Blood 132 mg/dL (70-110)
[2023-06-26] MEDS ORDERED: LEVOTHYROXINE 75 MCG TAB PO SCH (06:30)
[2023-06-26] MEDS ORDERED: HEPARIN SODIUM,PORCINE (1 ML) 2,500 UNIT in SODIUM CHLORIDE 0.9% 250 ML IRRIGATION PRN (07:00)
[2023-06-26] MEDS ORDERED: HEPARIN SODIUM,PORCINE 10,000 UNIT in SODIUM CHLORIDE 0.9% 1,000 ML IRRIGATION PRN (07:00)
[2023-06-26 07:36] LABS: Basophils % (A) 0 %; Eosinophils # (A) 0.2 k/uL (0-0.7); Eosinophils % (A) 3 %; HCT 35.3 % (34.0-46.0); HGB 12.1 gm/dL (11.4-16.0); Lymphocytes % (A) 21 %; MCH 30.2 pg (25.0-35.0); MCHC 34.4 g/dL (31.0-37.0); MCV 87.6 fL (80.0-100.0); Mean Platelet Volume 10.1; Monocytes # (A) 0.7 k/uL (0-1.0); Monocytes % (A) 8 %; Neutrophils % (A) 65 %; Platelet Count 237 k/uL (150-450); RBC 4.02 m/uL (3.80-5.40); RDW 13.8 % (11.5-15.5); WBC 9.2 k/uL (3.8-10.6)
[2023-06-26 07:52] LABS: ALT 57 U/L (4-34); AST 47 U/L (14-36); African American GFR (CKD) 86 (>60 ml/min/1.73 sqM); Alkaline Phosphatase 52 U/L (38-126); Anion Gap 13 mmol/L; Blood Urea Nitrogen 12 mg/dL (7-17); Calcium 9.3 mg/dL (8.4-10.2); Carbon Dioxide 19 mmol/L (22-30); Chloride 107 mmol/L (98-107); Glucose 132 mg/dL (74-99); Non-African American GFR(CKD) 74 (>60 ml/min/1.73 sqM); Potassium 3.8 mmol/L (3.5-5.1); Sodium 139 mmol/L (137-145); Total Bilirubin 0.5 mg/dL (0.2-1.3); Total Protein 5.5 g/dL (6.3-8.2)
[2023-06-26] MEDS ORDERED: LATANOPROST 0.005% OPHTH DROPS 2.5 ML BTL BOTH EYES SCH (09:00)
[2023-06-26] MEDS ORDERED: MULTIVITAMINS, THERA 1 EACH TAB PO SCH (09:00)
[2023-06-26] MEDS ORDERED: FAMOTIDINE 20 MG TAB PO SCH (09:00)
[2023-06-26] MEDS ORDERED: CHLORTHALIDONE 25 MG TAB PO SCH (09:00)
[2023-06-26] MEDS ORDERED: ASPIRIN 81 MG PO SCH (09:00)
[2023-06-26] MEDS ORDERED: lisinopriL 20 MG TAB PO SCH (09:00)
[2023-06-26] MEDS ORDERED: LEVOFLOXACIN 250 MG TAB PO SCH (09:00)
[2023-06-26] MEDS ORDERED: METOPROLOL SUCCINATE (ER) 25 MG TAB.ER.24H PO SCH (09:00)
[2023-06-26] MEDS: CALCIUM CARB-VIT D 500 MG-5 MCG TAB PO SCH (09:48)
--- NOTE | 2023-06-26 10:53 | P.HPIM ---
History of Present Illness This is a pleasant 78 years old female with multiple medical problems as below. Patient initially presented to [facility] with nausea vomiting and diarrhea for 3 days duration, she was treated symptomatically and found to have active gastroenteritis secondary to E. coli urinary tract infection which is sensitive to fluoroquinolones, she was treated with Cipro and her fever present on admission has subsided, currently she has no vomiting or diarrhea, denies bowel movement was 2 days ago and was normal. She is passing gas, abdomen soft with no pain or tenderness. She ate her breakfast today with no problems. Chest x-ray was showing interstitial edema versus atypical pneumonia as per radiologist. I reviewed chest x-ray myself, patient is asymptomatic with no chest pain dyspnea or coughing. We recommend patient follow up as an outpatient Patient vitals currently stable, systolic blood pressure 150s. Labs including CBC, BMP were unremarkable. Liver enzymes mildly elevated. She had leukocytosis on admission 13.4 which came back to 8.6. Hemoglobin 10.8. Urinalysis suspicious for infection with 3+ leukocyte esterase and WBCs more than 25. E. coli was growing in the urine culture was sensitive to Cipro and Le vaquin Patient is diabetic and she was Januvia, metformin at home, also she is on aspirin and Plavix at home. Patient confirms remission as prescriptions at [facility]. Patient was evaluated by physician allergist immunologist and she was transferred to this facility for cardiac cath which showed nonobstructive coronary artery disease yesterday. Patient feels she is back to normal self, patient was to go home today. This was discussed with the physician allergist immunologist team who cleared her for discharge. Problems and management plan were discussed with the patient and he verbalized understanding and acceptance Patient was found stable and can be discharged home in guarded prognosis however he needs follow-up as an outpatient. Patient was instructed to follow up with PCP Dr. Dominique within one week and patient agrees Patient was instructed to follow up with physician allergist immunologist Dr. Campos in one week after discharge and she agrees Physical exam Gen: patient is a AAOx3, no distress CVS: S1-S2, RRR, no murmur Lungs: B/L CTA, no wheezing Abdomen: soft, no distention, no tenderness, positive bowel sounds Extremity: no leg edema or induration Time spent more than 35 minutes Past Medical History Past Medical History: Asthma, Diabetes Mellitus, GERD/Reflux, Hyperlipidemia, Hypertension Additional Past Medical History / Comment(s): seasonal allergies. UTI's History of Any Multi-Drug Resistant Organisms: None Reported Past Surgical History: Appendectomy, Cholecystectomy, Tonsillectomy Additional Past Surgical History / Comment(s): carpal tunnel. Colonoscopy 2011. heart cath 2022 Past Anesthesia/Blood Transfusion Reactions: No Reported Reaction Additional Past Anesthesia/Blood Transfusion Reaction / Comment(s): Pt has never had a blood transfusion. Past Psychological History: No Psychological Hx Reported Additional Psychological History / Comment(s): Pt resides alone. Smoking Status: Never smoker Past Alcohol Use History: None Reported Past Drug Use History: None Reported - Past Family History Father Family Medical History: Diabetes Mellitus, Myocardial Infarction (HI) Additional Family Medical History / Comment(s): HI in his mid 60's, Parkinsons, Alzhiemers Mother Family Medical History: Cancer Additional Family Medical History / Comment(s): lung cancer Sister(s) Family Medical History: Cancer Medications and Allergies Home Medications Medication Instructions Recorded Confirmed Type Baclofen [Lioresal] 10 mg PO HS 12/16/17 06/25/23 History Levocetirizine Dihydrochloride 5 mg PO HS 12/16/17 06/25/23 History [Xyzal] metFORMIN HCL [Glucophage] 1,000 mg PO DAILY 12/16/17 06/25/23 History sitaGLIPtin [Januvia] 100 mg PO HS 12/16/17 06/25/23 History Aspirin EC [Ecotrin Low Dose] 81 mg PO DAILY 10/22/18 06/25/23 History Calcium Carbonate/Vitamin D3 1 tab PO BID 10/22/18 06/25/23 History [Calcium 600-Vit D3 10 mcg (400 Iu)] Cyanocobalamin (Vitamin B-12) 500 mcg PO MOWEFR 10/22/18 06/25/23 History [Vitamin B-12] Ipratropium [place] 0.06%Nasal 2 spray EA NOSTRIL BID 10/22/18 06/25/23 History [Atrovent Nasal 0.06%] L.acidoph,Paracasei, B.lactis 1 cap PO DAILY 10/22/18 06/25/23 History [Probiotic] Multivitamins, Thera [Multivitamin 1 tab PO DAILY 10/22/18 06/25/23 History (formulary)] [place]-3 Fatty Acids/Fish Oil [Fish 1 cap PO BID 10/22/18 06/25/23 History Oil 1,000 mg Softgel] Acetaminophen Tab [Tylenol] 650 mg PO Q4H PRN 01/28/19 06/25/23 History Chlorthalidone 25 mg PO DAILY 12/25/22 06/25/23 History Famotidine [Pepcid] 20 mg PO DAILY 12/25/22 06/25/23 History Fluticasone/Vilanterol [Breo 1 puff INHALATION RT-BID 12/25/22 06/25/23 History Ellipta 100-25 Mcg Inhaler] Latanoprost [Latanoprost 0.005%] 1 drop BOTH EYES HS 12/25/22 06/25/23 History Metoprolol Succinate (ER) [Toprol 25 mg PO DAILY 12/25/22 06/25/23 History XL] Albuterol Inhaler [Ventolin Hfa 1 - 2 puff INHALATION RT-Q6H PRN 06/25/23 06/25/23 History Inhaler] Clopidogrel [Plavix] 75 mg PO HS 06/25/23 06/25/23 History Cranberry 25,000 Mg 25,000 mg PO DAILY 06/25/23 06/25/23 History Dorzolamide HCl/Pf [Dorzolamide 2% 1 drop BOTH EYES BID 06/25/23 06/25/23 History Eye Drop] Estradiol Cream [Estrace Cream 1 gm VAGINAL MOWEFR 06/25/23 06/25/23 History 0.01%] Fluticasone Propionate [Flovent 1 puff INHALATION RT-BID 06/25/23 06/25/23 History Diskus] Levothyroxine Sodium [Synthroid] 75 mcg PO DAILY 06/25/23 06/25/23 History Simvastatin [Zocor] 40 mg PO HS 06/25/23 06/25/23 History metFORMIN HCL [Glucophage] 500 mg PO HS 06/25/23 06/25/23 History Levofloxacin [Levaquin] 250 mg PO DAILY 3 Days #3 tab 06/26/23 Rx lisinopriL [Zestril] 80 mg PO QAM #120 tab 06/26/23 Rx Allergies Allergy/AdvReac Type Severity Reaction Status Date / Time codeine Allergy Rash/Hives Verified 06/25/23 20:35 Penicillins Allergy Swelling Verified 06/25/23 20:35 Sulfa (Sulfonamide Allergy Rash/Hives Verified 06/25/23 20:35 Antibiotics) Physical Exam Vitals: Vital Signs Temp Pulse Pulse Resp BP Pulse Ox 06/26/23 03:25 65 17 150/66 98 06/25/23 23:38 71 17 152/70 97 06/25/23 20:53 97.6 F 67 18 159/72 98 06/25/23 19:16 64 16 116/56 06/25/23 18:46 66 16 123/60 93 L 06/25/23 18:16 64 14 124/59 95 06/25/23 13:21 98.4 F 67 16 121/58 99 Intake and Output 06/25/23 06/26/23 06/26/23 22:59 06:59 14:59 Intake Total 150 Balance 150 Intake: IV 150 Other: Voiding Method Toilet Toilet Bedpan Bedpan # Voids 1 3 Weight 74.9 kg Results CBC & Chem 7: 06/26/23 06:58 06/26/23 06:58 Labs: Abnormal Lab Results - Last 24 Hours (Table) 06/25/23 06/25/23 06/26/23 Range/Units 18:16 20:05 06:05 Carbon Dioxide (22-30) mmol/L Glucose (74-99) mg/dL POC Glucose (mg/dL) 111 H 142 H 132 H (70-110) mg/dL AST (14-36) U/L ALT (4-34) U/L Total Protein (6.3-8.2) g/dL Albumin (3.5-5.0) g/dL 06/26/23 Range/Units 06:58 Carbon Dioxide 19 L (22-30) mmol/L Glucose 132 H (74-99) mg/dL POC Glucose (mg/dL) (70-110) mg/dL AST 47 H (14-36) U/L ALT 57 H (4-34) U/L Total Protein 5.5 L (6.3-8.2) g/dL Albumin 3.0 L (3.5-5.0) g/dL Thrombosis Risk Factor Assmnt - Choose All That Apply Any of the Below Risk Factors Present?: Yes Each Factor Represents 1 point: Obesity (BMI >25) Other Risk Factors: Yes Each Risk Factor Represents 3 Points: Age 75 years or older Other congenital or acquired thrombophilia - If yes, enter type in comment: No Thrombosis Risk Factor Assessment Total Risk Factor Score: 4 Thrombosis Risk Factor Assessment Level: Moderate Risk
--- NOTE | 2023-06-26 10:54 | P.DS ---
Providers Date of admission: 06/25/23 13:45 Attending physician: Tram Hill Consults: 06/26/23 09:45 Consult Physician Routine Consulting Provider: Flaco Kaiser Consult Reason/Comments: had cradiac cath Do you want consulting provider notified?: Already Contacted Primary care physician: Raul Hutchins [facility] Course: please refer to H&P Plan - Discharge Summary Discharge Rx Participant: Yes New Discharge Prescriptions: New Levofloxacin [Levaquin] 250 mg PO DAILY 3 Days #3 tab lisinopriL [Zestril] 80 mg PO QAM #120 tab Continue Baclofen [Lioresal] 10 mg PO HS sitaGLIPtin [Januvia] 100 mg PO HS metFORMIN HCL [Glucophage] 1,000 mg PO DAILY Levocetirizine Dihydrochloride [Xyzal] 5 mg PO HS [place]-3 Fatty Acids/Fish Oil [Fish Oil 1,000 mg Softgel] 1 cap PO BID Multivitamins, Thera [Multivitamin (formulary)] 1 tab PO DAILY Cyanocobalamin (Vitamin B-12) [Vitamin B-12] 500 mcg PO MOWEFR Calcium Carbonate/Vitamin D3 [Calcium 600-Vit D3 10 mcg (400 Iu)] 1 tab PO BID L.acidoph,Paracasei, B.lactis [Probiotic] 1 cap PO DAILY Aspirin EC [Ecotrin Low Dose] 81 mg PO DAILY Ipratropium [place] 0.06%Nasal [Atrovent Nasal 0.06%] 2 spray EA NOSTRIL BID Acetaminophen Tab [Tylenol] 650 mg PO Q4H PRN PRN Reason: Pain Fluticasone/Vilanterol [Breo Ellipta 100-25 Mcg Inhaler] 1 puff INHALATION RT-BID Latanoprost [Latanoprost 0.005%] 1 drop BOTH EYES HS Famotidine [Pepcid] 20 mg PO DAILY Chlorthalidone 25 mg PO DAILY Cranberry 25,000 Mg 25,000 mg PO DAILY metFORMIN HCL [Glucophage] 500 mg PO HS Fluticasone Propionate [Flovent Diskus] 1 puff INHALATION RT-BID Estradiol Cream [Estrace Cream 0.01%] 1 gm VAGINAL MOWEFR Clopidogrel [Plavix] 75 mg PO HS Metoprolol Succinate (ER) [Toprol XL] 25 mg PO DAILY Levothyroxine Sodium [Synthroid] 75 mcg PO DAILY Simvastatin [Zocor] 40 mg PO HS Dorzolamide HCl/Pf [Dorzolamide 2% Eye Drop] 1 drop BOTH EYES BID Albuterol Inhaler [Ventolin Hfa Inhaler] 1 - 2 puff INHALATION RT-Q6H PRN PRN Reason: Shortness Of Breath Discontinued Ramipril 20 mg PO DAILY Ibuprofen [Motrin Ib] 400 mg PO Q8H PRN PRN Reason: Pain Discharge Medication List Baclofen [Lioresal] 10 mg PO HS 12/16/17 [History] Levocetirizine Dihydrochloride [Xyzal] 5 mg PO HS 12/16/17 [History] metFORMIN HCL [Glucophage] 1,000 mg PO DAILY 12/16/17 [History] sitaGLIPtin [Januvia] 100 mg PO HS 12/16/17 [History] Aspirin EC [Ecotrin Low Dose] 81 mg PO DAILY 10/22/18 [History] Calcium Carbonate/Vitamin D3 [Calcium 600-Vit D3 10 mcg (400 Iu)] 1 tab PO BID 10/22/18 [History] Cyanocobalamin (Vitamin B-12) [Vitamin B-12] 500 mcg PO MOWEFR 10/22/18 [ History] Ipratropium [place] 0.06%Nasal [Atrovent Nasal 0.06%] 2 spray EA NOSTRIL BID 10/22/18 [History] L.acidoph,Paracasei, B.lactis [Probiotic] 1 cap PO DAILY 10/22/18 [History] Multivitamins, Thera [Multivitamin (formulary)] 1 tab PO DAILY 10/22/18 [History] [place]-3 Fatty Acids/Fish Oil [Fish Oil 1,000 mg Softgel] 1 cap PO BID 10/22/18 [History] Acetaminophen Tab [Tylenol] 650 mg PO Q4H PRN 01/28/19 [History] Chlorthalidone 25 mg PO DAILY 12/25/22 [History] Famotidine [Pepcid] 20 mg PO DAILY 12/25/22 [History] Fluticasone/Vilanterol [Breo Ellipta 100-25 Mcg Inhaler] 1 puff INHALATION RT-BI D 12/25/22 [History] Latanoprost [Latanoprost 0.005%] 1 drop BOTH EYES HS 12/25/22 [History] Metoprolol Succinate (ER) [Toprol XL] 25 mg PO DAILY 12/25/22 [History] Albuterol Inhaler [Ventolin Hfa Inhaler] 1 - 2 puff INHALATION RT-Q6H PRN 06/25/23 [History] Clopidogrel [Plavix] 75 mg PO HS 06/25/23 [History] Cranberry 25,000 Mg 25,000 mg PO DAILY 06/25/23 [History] Dorzolamide HCl/Pf [Dorzolamide 2% Eye Drop] 1 drop BOTH EYES BID 06/25/23 [History] Estradiol Cream [Estrace Cream 0.01%] 1 gm VAGINAL MOWEFR 06/25/23 [History] Fluticasone Propionate [Flovent Diskus] 1 puff INHALATION RT-BID 06/25/23 [History] Levothyroxine Sodium [Synthroid] 75 mcg PO DAILY 06/25/23 [History] Simvastatin [Zocor] 40 mg PO HS 06/25/23 [History] metFORMIN HCL [Glucophage] 500 mg PO HS 06/25/23 [History] Levofloxacin [Levaquin] 250 mg PO DAILY 3 Days #3 tab 06/26/23 [Rx] lisinopriL [Zestril] 80 mg PO QAM #120 tab 06/26/23 [Rx] Follow up Appointment(s)/Referral(s): [facility] [NON-STAFF] - Vladimir Campos MD [STAFF PHYSICIAN] - 1 Week Raul Schilling MD [Primary Care Provider] - 1 Week Activity/Diet/Wound Care/Special Instructions: heart healthy diet activity is restricted till you see your doctor Discharge/Stand Alone Forms: Who Do I Call?, [employer]
[2023-06-26 11:02] VITALS: RESP 16
[2023-06-26 11:48] LABS: Glucose,Whole Blood 124 mg/dL (70-110)
--- NOTE | 2023-06-26 12:20 | P.PN ---
Subjective HISTORY OF PRESENT ILLNESS: This is 78-year-old female who underwent cardiac catheterization yesterday with Dr. Campos revealing mild nonobstructive coronary artery disease and normal left- sided filling pressures. Medical management was recommended. The patient was evaluated this morning by Dr. Kaiser. The patient denies any chest pain or pressure. Denies any shortness of breath. Vital signs are stable. PHYSICAL EXAM: VITAL SIGNS: Reviewed. GENERAL: Well-developed in no acute distress. NECK: Supple. No JVD or thyromegaly LUNGS: Respirations even and unlabored. Lungs essentially clear to auscultation bilaterally. HEART: Regular rate and rhythm. S1 and S2 heard. EXTREMITIES: Normal range of motion. No clubbing or cyanosis. Peripheral pulses intact. No lower extremity edema ASSESSMENT: Status post cardiac catheterization revealing mild nonobstructive CAD and normal left-sided filling pressures PLAN: Continue current cardiac medications Patient is stable for discharge home today from a cardiac standpoint She is to follow up post discharge with Dr. Campos Nurse practitioner note has been reviewed by physician. Signing provider agrees with the documented findings, assessment, and plan of care. Objective - Vital Signs Vital signs: Vital Signs Temp 98.1 F 06/26/23 08:25 Pulse 66 06/26/23 08:25 Resp 16 06/26/23 08:25 BP 124/59 06/26/23 08:25 Pulse Ox 96 06/26/23 08:25 FiO2 Intake & Output 06/25/23 06/26/23 06/26/23 18:59 06:59 18:59 Intake Total 550 100 118 Balance 550 100 118 Weight 74.9 kg 74.9 kg Intake: IV 550 100 Oral 118 Other: Voiding Method Toilet Bedpan # Voids 2 3 # Bowel Movements 0 - Labs CBC & Chem 7: 06/26/23 06:58 06/26/23 06:58 Labs: Abnormal Lab Results - Last 24 Hours (Table) 06/25/23 06/25/23 06/26/23 Range/Units 18:16 20:05 06:05 Carbon Dioxide (22-30) mmol/L Glucose (74-99) mg/dL POC Glucose (mg/dL) 111 H 142 H 132 H (70-110) mg/dL AST (14-36) U/L ALT (4-34) U/L Total Protein (6.3-8.2) g/dL Albumin (3.5-5.0) g/dL 06/26/23 06/26/23 Range/Units 06:58 11:46 Carbon Dioxide 19 L (22-30) mmol/L Glucose 132 H (74-99) mg/dL POC Glucose (mg/dL) 124 H (70-110) mg/dL AST 47 H (14-36) U/L ALT 57 H (4-34) U/L Total Protein 5.5 L (6.3-8.2) g/dL Albumin 3.0 L (3.5-5.0) g/dL
[2023-06-26 13:50] VITALS: BP 121/74; PULSE 68; TEMP 98.3
== END 2023-06-26 17:09 | disposition home health service (06) | DRG 287 ==
LOC: 3SCARD 13:45
PROVIDERS: ADMIT Internal Medicine; ATTEND Internal Medicine
PROC: B2111ZZ Fluoroscopy of Multiple Coronary Arteries using Low Osmolar Contrast (ICD-10-PCS; 2023-06-25)
PROC: 4A023N7 Measurement of Cardiac Sampling and Pressure, Left Heart, Percutaneous Approach (ICD-10-PCS; principal; 2023-06-25 19:25)
DX: I25.10 Atherosclerotic heart disease of native coronary artery without angina pectoris (principal); I10 Essential (primary) hypertension; J45.909 Unspecified asthma, uncomplicated; K21.9 Gastro-esophageal reflux disease without esophagitis; Z87.440 Personal history of urinary (tract) infections; E11.9 Type 2 diabetes mellitus without complications; E78.5 Hyperlipidemia, unspecified; Z79.02 Long term (current) use of antithrombotics/antiplatelets; Z79.51 Long term (current) use of inhaled steroids; Z79.82 Long term (current) use of aspirin; Z79.84 Long term (current) use of oral hypoglycemic drugs; Z79.890 Hormone replacement therapy; Z79.899 Other long term (current) drug therapy; Z82.49 Family history of ischemic heart disease and other diseases of the circulatory system; Z88.5 Allergy status to narcotic agent; Z88.0 Allergy status to penicillin; Z88.2 Allergy status to sulfonamides
CPT/HCPCS: 80053; 85025; 93458

== ENCOUNTER → 2023-08-27 | Outpatient (CLI) | payer MEDICARE ==
--- NOTE | 2023-08-28 19:41 | MM ---
Reason for Exam: Screening (asymptomatic). Last screening mammogram was performed 12 month(s) ago. Patient History: Menarche at age 13. First Full-Term at age 25. Left ovary removed at age 73. Right ovary removed at age 73. Hysterectomy at age 73. Postmenopausal. Sister had breast cancer, age 65. Risk Values: Krysta 5 year model risk: 3.4%. NCI Lifetime model risk: 6.0%. Prior Study Comparison: 06/07/2020 Bilateral Screening Mammogram, [facility]. 06/13/2021 Bilateral Screening Mammogram, [facility]. 08/26/2022 Bilateral MG 3D screening mammo w/cad, [facility]. Tissue Density: The breast tissue is heterogeneously dense. This may lower the sensitivity of mammography. Findings: Analyzed By CAD. Unchanged focal asymmetry right breast. On the left, asymmetric density posteriorly on the MLO view is more defined. This may represent superimposition shadow but further evaluation is recommended. Otherwise, no significant change. Overall Assessment: Incomplete: need additional imaging evaluation, BI-RAD 0 Management: Special View Mammogram of the left breast. Diagnostic Breast Ultrasound of the left breast. Additional views to include spot 3-D MLO, 3-D lateral (to include far posterior tissue), and 3-D XCCL view. Targeted left breast ultrasound if any persisting abnormality. [facility] will attempt to contact patient to return for supplemental views and ultrasound if indicated. Electronically signed and approved by: Milena Peacock M.D. Radiologist
== END | disposition home or self-care (01) ==
LOC: RADMAMWWP 12:36
PROVIDERS: ATTEND Internal Medicine
DX: Z12.31 Encounter for screening mammogram for malignant neoplasm of breast (principal); Z80.3 Family history of malignant neoplasm of breast; Z78.0 Asymptomatic menopausal state
CPT/HCPCS: 77063; 77067

== ENCOUNTER → 2023-08-27 | Outpatient (CLI) | payer MEDICARE ==
--- NOTE | 2023-08-27 21:24 | BD ---
EXAMINATION TYPE: Axial Bone Density DATE OF EXAM: 08/27/2023 CLINICAL HISTORY: 78 years old Female. ICD-10 CODE: M85.88 OTH DISRD OF BONE DENSITY AND STRUCTURE, OT Height: 61in Weight: 157lb FRAX RISK QUESTIONS: Family History (Parent hip fracture): yes History of Fracture in Adulthood: yes Secondary Osteoporosis: RISK FACTORS HISTORY OF: MEDICATIONS: Thyroid Medications: Which medication: Synthroid How Long: about 3 years EXAM MEASUREMENTS: Bone mineral densitometry was performed using the [employer] System. Bone mineral density as measured about the Lumbar spine is: ----- L1-L4(G/cm2): 1.346 T Score Values are as follows: ----- L1: -0.1 ----- L2: 1.7 ----- L3: 3.5 ----- L4: 0.2 ----- L1-L4: 1.4 Z Score Values are as follows: ----- L1: 1.5 ----- L2: 3.3 ----- L3: 5.1 ----- L4: 1.8 ----- L1-L4: 3.0 Bone mineral density has: Decreased -0.4% since study of: 06-13-21 Bone mineral density about the R hip (g/cm2): 0.975 Bone mineral density about the L hip (g/cm2): 0.949 T Score values are as follows: -----R Neck: -0.4 -----L Neck: -1.4 -----R Total: -0.3 -----L Total: -0.5 Z Score values are as follows: -----R Neck: 1.5 -----L Neck: 0.5 -----R Total: 1.5 -----L Total: 1.3 Bone mineral density has: Decreased -1.8% since study of: 06-13-21 FRAX%s: The graph provided illustrates a 17.8% chance for a major osteoporotic fx and a 3.4% chance f or the hips probability for fx in 10 years time. IMPRESSION: Normal (Values between +1 and -1 indicate normal bone mass). Consider repeating this study in 5 year s or sooner if there is some new clinical indication. NOTE: T-SCORE=SD OF THE YOUNG ADULT MEAN.
== END | disposition home or self-care (01) ==
LOC: RADBDWWP 12:38
PROVIDERS: ATTEND Obstetrics & Gynecology
DX: M85.88 Other specified disorders of bone density and structure, other site (principal)
CPT/HCPCS: 77080

== ENCOUNTER → 2023-09-02 | Outpatient (CLI) | payer MEDICARE ==
--- NOTE | 2023-09-04 10:05 | MM ---
Reason for Exam: Additional evaluation requested from abnormal screening. Last screening mammogram was performed less than 1 month ago. Patient History: Menarche at age 13. First Full-Term at age 25. Left ovary removed at age 73. Right ovary removed at age 73. Hysterectomy at age 73. Postmenopausal. Sister had breast cancer, age 65. Risk Values: Krysta 5 year model risk: 3.4%. NCI Lifetime model risk: 6.0%. Prior Study Comparison: 06/13/2021 Bilateral Screening Mammogram, [facility]. 08/26/2022 Bilateral MG 3D screening mammo w/cad, [facility]. 08/27/2023 Bilateral MG 3D screening mammo w/cad, [facility]. Tissue Density: Left: The breasts are heterogeneously dense, which may obscure small masses. Findings: Analyzed By CAD. No persistent density or mass seen. Precautionary six-month follow-up recommended. Overall Assessment: Probably benign, BI-RAD 3 Management: Diagnostic Mammogram of the left breast. . Results were given to the patient verbally at the time of exam. Patient should continue monthly self-breast exams. A clinical breast exam by your physician is recommended on an annual basis. This exam should not preclude additional follow-up of suspicious palpable abnormalities. Note on Krysta scores and lifetime risk: 1. A Krysta score greater than 3% is considered moderate risk. If this is the case, consider specialist referral to assess eligibility for a risk reducing agent. 2. If overall lifetime risk for the development of breast cancer is 20% or higher, the patient may qualify for future screening with alternating mammogram and breast MRI. Electronically signed and approved by: Jakob Alvarado M.D. Radiologis
== END | disposition home or self-care (01) ==
LOC: RADMAMWWP 13:01
PROVIDERS: ATTEND Internal Medicine
DX: R92.332 Mammographic heterogeneous density, left breast (principal); Z80.3 Family history of malignant neoplasm of breast; Z78.0 Asymptomatic menopausal state
CPT/HCPCS: 77065; G0279; 77061

== ENCOUNTER → 2023-09-29 | Outpatient (CLI) | payer MEDICARE ==
--- NOTE | 2023-09-29 11:39 | CT ---
EXAMINATION TYPE: CT right knee - [facility] Protocol DATE OF EXAM: 09/29/2023 COMPARISON: None HISTORY: [facility] knee Unenhanced CT of the right lower extremity was performed for [facility] protocol. Bone and soft tissue wind ow settings are submitted. FINDINGS: There is mild degenerative narrowing of the right hip joint space. No fracture or dislocation. No bon y lesion. Evaluation of the right ankle reveals no distinct abnormality. Evaluation of the right knee demonstrates moderate to severe multi compartment degenerative narrowing. Associated spur formation. No fracture. No sizable joint effusion. Spur formation seen. IMPRESSION: [facility] PROTOCOL RIGHT KNEE
== END | disposition home or self-care (01) ==
LOC: RADCTMAIN 10:59
PROVIDERS: ATTEND Orthopaedic Surgery
DX: M17.11 Unilateral primary osteoarthritis, right knee (principal); I10 Essential (primary) hypertension; E78.5 Hyperlipidemia, unspecified; E11.9 Type 2 diabetes mellitus without complications

== ENCOUNTER → 2023-10-30 | Outpatient (CLI) | payer MEDICARE ==
[2023-10-30 11:32] LABS: INR 0.9 (<1.2); Partial Thromboplastin Time 22.4 sec (22.0-30.0); Prothrombin Time 9.9 sec (10.0-12.5)
[2023-10-30 14:25] LABS: HCT 41.6 % (37.2-46.3); HGB 13.5 g/dL (12.0-15.0); MCH 29.3 pg (27.0-32.0); MCHC 32.5 g/dL (32.0-37.0); MCV 90.2 FL (80.0-97.0); Mean Platelet Volume 11.9 FL (9.5-12.2); NRBC Per 100 WBC 0 X 10*3/uL (0.00-0.01); Platelet Count 247 X 10*3/uL (140-440); RBC 4.61 X 10*6/uL (4.10-5.20); RDW 13.7 % (11.5-14.5); WBC 13.17 X 10*3/uL (4.50-10.00)
[2023-10-30 15:45] LABS: ALT 16 U/L (8-44); AST 18 U/L (13-35); Albumin 4.4 g/dL (3.8-4.9); Alkaline Phosphatase 54 U/L (41-126); Blood Urea Nitrogen 32.2 mg/dL (9.0-27.0); Calcium 11.4 mg/dL (8.7-10.3); Chloride 102 mmol/L (96-109); Globulin 2.2 g/dL (1.6-3.3); Glucose 191 mg/dL (70-110); Sodium 137 mmol/L (135-145); Total Bilirubin 0.2 mg/dL (0.3-1.2); Total Protein 6.6 g/dL (6.2-8.2)
== END | disposition home or self-care (01) ==
LOC: LABWHC1 10:29
PROVIDERS: ATTEND Orthopaedic Surgery
DX: Z01.818 Encounter for other preprocedural examination (principal); Z22.322 Carrier or suspected carrier of Methicillin resistant Staphylococcus aureus; M17.11 Unilateral primary osteoarthritis, right knee; I21.29 ST elevation (STEMI) myocardial infarction involving other sites; I49.9 Cardiac arrhythmia, unspecified; R94.31 Abnormal electrocardiogram [ECG] [EKG]
CPT/HCPCS: 36415; 80053; 85027; 85610; 85730; 87070; 93005

== ENCOUNTER 2023-11-10 07:30 | Day surgery (SDC) | payer MEDICARE ==
[~2023-11-10 07:30] MED LIST changes: +HYDROmorphone 0.5 MG/0.5 ML SYRINGE IVP PRN; +LIDOCAINE 1% (10MG/ML) FOR IV START INTRADERMA PRN; -LIDOCAINE 1% 20 ML VIAL (10MG/ML) FOR IV START INTRADERMA PRN; -MIDAZOLAM 2 MG/2 ML VIAL IV PRN; +ONDANSETRON 4 MG/2 ML VIAL IVP PRN; -SCOPOLAMINE 1.5MG/72HR PATCH TRANSDERM ONE; +TRANEXAMIC 1,000 MG/100ML-NACL 1,000 MG in SALINE 1 100ML.BAG IVPB PRN
[2023-11-10] MEDS: LACTATED RINGERS 1,000 ML IV SCH (08:06)
[2023-11-10] MEDS: GABAPENTIN 300 MG CAP PO PRN (08:29)
[2023-11-10] MEDS: ACETAMINOPHEN TAB 500 MG TAB PO PRN (08:29)
[2023-11-10] MEDS: DEXAMETHASONE SOD PHOSPHATE 4 MG/ML 1 ML VIAL IV ONE (08:30)
[2023-11-10] MEDS: MELOXICAM 7.5 MG TAB PO PRN (08:30)
[2023-11-10] MEDS: ONDANSETRON 4 MG/2 ML VIAL IVP ONE (08:30)
[2023-11-10] MEDS: MIDAZOLAM 2 MG/2 ML VIAL IVP ONE (08:38)
[2023-11-10] MEDS: fentaNYL (PF) 50 MCG/ML 2 ML AMP IVP ONE (08:38)
[2023-11-10 08:45] LABS: Glucose,Whole Blood 117 mg/dL (70-110)
[2023-11-10] MEDS ORDERED: bisacodyL 10 MG SUPP RECTAL PRN (08:57)
[2023-11-10] MEDS ORDERED: NA PHOS,M-B/NA PHOS,DI-BA 133 ML ENEMA RECTAL PRN (08:57)
[2023-11-10] MEDS ORDERED: MAGNESIUM HYDROXIDE 2,400 MG/30 ML CUP PO PRN (08:57)
[2023-11-10] MEDS ORDERED: HYDROmorphone 0.5 MG/0.5 ML SYRINGE IVP PRN ×3 (08:57)
[2023-11-10] MEDS ORDERED: NALOXONE 0.4 MG/ML 1 ML VIAL IV PRN (08:57)
--- NOTE | 2023-11-10 09:16 | P.ANPRN ---
Procedure Note - Anesthesia - Nerve Block Performed Right iPack Single Time Out Performed: Yes (0838) Date of Procedure: 11/10/23 Procedure Start Time: 08:45 Procedure Stop Time: 08:47 Location of Patient: PreOp Indication: Acute Post-Operative Pain, Requested by Surgeon Specifically requested for management of pain by DrKhris: Luis Farrell Sedation Type: Sedate with meaningful contact maintained Preparation: Sterile Prep Position: Supine Catheter: None Needle Types: Pajunk Needle Gauge: 21 Ultrasound used to visualize needle placement: Yes Ultrasound used to observe medication spread: Yes Injectate: 0.5% Ropivacaine (see comment for volume) (20cc) Blood Aspirated: No Pain Paresthesia on Injection Noted: No Resistance on Injection: Normal Image Stored and Saved: Yes Events: Uneventful and Well Tolerated
--- NOTE | 2023-11-10 09:16 | P.ANPRN ---
Procedure Note - Anesthesia - Nerve Block Performed Right Adductor Canal Infusion Time Out Performed: Yes (0838) Date of Procedure: 11/10/23 Procedure Start Time: 08:39 Procedure Stop Time: 08:44 Location of Patient: PreOp Indication: Acute Post-Operative Pain, Requested by Surgeon Specifically requested for management of pain by DrKhris: Luis Farrell Sedation Type: Sedate with meaningful contact maintained Preparation: Sterile Prep Position: Supine Catheter Depth at Skin (cm): 8 Catheter: Indwelling Needle Types: Pajunk Needle Gauge: 18 Ultrasound used to visualize needle placement: Yes Ultrasound used to observe medication spread: Yes Injectate: 0.5% Ropivacaine (see comment for volume) (20cc) Blood Aspirated: No Pain Paresthesia on Injection Noted: No Resistance on Injection: Normal Image Stored and Saved: Yes Events: Uneventful and Well Tolerated
[2023-11-10] MEDS: ceFAZolin 1,000 MG in SODIUM CHLORIDE 0.9% 1,000 ML IRRIGATION ONE (09:34)
[2023-11-10] MEDS: LACTATED RINGERS 1,000 ML IV ONE ×2 (10:56→11:06)
--- NOTE | 2023-11-10 11:03 | P.OP ---
Date of Procedure: 11/10/23 Preoperative Diagnosis: severe osteoarthritis right knee Postoperative Diagnosis: severe osteoarthritis right knee Procedure(s) Performed: robotic-assisted right total knee arthroplasty utilizing the Vern robotic arm Implants: [place] Triathalon cruciate retaining femoral component size 4, right [place] Triathalon tibial baseplate size 3 Frederick articular insert, CS size 10 mm, Size 3 Frederick resurfacing patellar component, oval, 29 mm All components were cemented using [place]os R bone cement The articulation is cobalt chrome on polyethylene Anesthesia: spinal Surgeon: Luis Farrell Custom Protection Officer #1: Patti Herring Estimated Blood Loss (ml): 30 Pathology: none sent Condition: stable Disposition: PACU Indications for Procedure: The patient's knee is end-stage, and conservative management has failed. The operation of knee replacement has been discussed at length in the office, as well as potential risks and complications. These are inclusive of, but not limited to: Infection, bleeding, scarring, discomfort, stiffness, blood vessel and nerve damage, need for further surgery, failure to relieve symptoms, persistence, recurrence, or worsening of problems, loosening, dislocation, wear, blood clot, pulmonary embolism, , gait dysfunction, stiffness, and other risks as discussed in the office. Patient elects to proceed and the consent form has been signed. Operative Findings: the operative findings are consistent with severe osteoarthritis of the right knee Description of Procedure: The patient was seen in the preoperative area, the consent was reviewed and the operative site was marked with a skin marker. The patient verified the procedure and the operative site. An adductor canal pain catheter and an iPACK block were placed by anesthesia in the preoperative area. The patient was then brought to the operating room and positioned on the operating room table in the supine position. Preoperative antibiotics and a gram of tranexamic acid were given intravenously. A spinal anesthetic was administered by the anesthesia department. Care was taken to make sure that all pressure points were adequately padded. A tourniquet was placed on the upper thigh and the lower extremity was prepped with ChloraPrep and draped in usual sterile fashion. A universal time-out was then performed which confirmed the patient's name, surgic al site, ALLERGIES, and consent. The lower extremity was then exsanguinated and tourniquet was inflated to 250 mmHg. A standard anterior midline approach to the knee was performed. The skin and subcutaneous tissue were sharply dissected down to the patellar tendon. A medial parapatellar arthrotomy was then performed. The knee was then extended, the patellar was everted, and the knee was flexed. The infra-patellar fat pad was removed in order to enhance exposure. Steinmann pins were then placed in the distal femur and proximal tibia for the tracking devices. The robotic arm software was then calibrated utilizing the standard protocol. After calibrating the right knee, and the surgical plan was finalized. Next, attention was directed back to the right knee. The anterior horns of both menisci were excised, and a release was performed to the posterior medial aspect of the knee. On gross visual inspection, there was complete loss of articular cartilage in the medial and patellofemoral joint spaces. There was also significant cartilage damage in the lateral compartment. There were multiple periarticular osteophytes globally about the knee which were then removed with a Ronguer. utilizing the robotic arm, the femoral cuts were performed. Any remaining bone and osteophytes were removed from the femur with a Ronguer. Attention was then directed to the tibia. The remaining ACL was removed with a Ronguer, and the tibia was then gently subluxed forward with a large bent knee retractor. Any remaining menisci were excised. The posterior lateral corner was cauterized in order to coagulate the lateral geniculate artery. the robotic arm was then used to resect the proximal tibia. The femoral trial was placed. The tibial trial was placed with the appropriate- sized insert. The knee was able to fully extend and flex to 130 and was stable throughout all range of motion. The knee was then extended and the patella was everted. Patella was then measured, and then using an osteotomy guide, the patella was cut at the appropriate level. The patellar component was sized. The patellar drill guide was placed and the patella was drilled. The patella trial was then placed. The knee was then taken through range of motion with the patella trial and the patella tracked normally using the no thumbs technique. the trial and the follow the surgical plan. The patella trial was then removed. the Steinmann pins were then removed from the distal femur and proximal tibia. The knee was then flexed and lug holes were drilled through the femoral trial and the femoral trial was then removed. The tibial was then re-exposed, and the tibial broach guide was then pinned in place after it was set for the appropriate rotation to allow for the most coverage without overhang. The tibia was then reamed and broached. The cut surfaces of bone were then irrigated with pulsatile lavage. The knee was also irrigated with Irrisept solution. The components were then opened, the cement was mixed. Cement was placed on the backside of the femoral, tibial, and patellar components. Cement was then applied to the tibial surface and pressurized into the surface using finger pressurization technique. The tibial component was then applied and excess cement was removed after it was impacted securely noted to be flush with the cut surface. In similar fashion, the cement was applied to the cut femoral surface, pressurized and using finger pressurization the component was impacted in place. Excess cement was removed. The polyethylene spacer was then implanted and l ocked into position. Patellar component was then applied in a similar technique and the patellar clamp was used to hold patella in place while the cement hardened. The knee was held in full extension while the cement hardened. Once the cement had fully hardened, the knee was reinspected. Any other cement extrusion was removed the final range of motion testing showed range of motion from 0-130 with excellent stability, both medial and laterally and appropriate alignment of the leg. Patella tracked normally. After the cemented hardened, the tourniquet was released and hemostasis was obtained. A second gram of transexamic acid was given intravenously. The knee was again irrigated. The knee was again taken through range of motion and found to be stable throughout all range of motion of 0-130, and the patella tracked normally. The fascia was then closed with 0 Vicryl followed by #2 strata fix suture. The subcutaneous tissue was closed with 3-0 Vicryl and 3-0 strata fix. Exofin glue was used for the skin and placed with the knee in flexion. After the glue had dried, and Optafoam silver impregnated dressing was applied. A lightly compressive dressing was applied using web roll and Femi wrap. Patient was then transferred to the stretcher and taken to recovery room in stable condition. Sponge and needle counts were correct. The anesthesiologist assistant BERTIN Lugo was required due the complexity surgery and the need for a skilled surgical product sales consultant. She assisted in positioning, draping, retraction, and closure of the wound.
[2023-11-10] MEDS: ROPIVACAINE 1,100 MG, SODIUM CHLORIDE 0.9% 500 ML 330 ML, EMPTY PAIN BALL 1 EACH MISCELLANE PRN (11:57)
--- NOTE | 2023-11-10 12:03 | XR ---
EXAMINATION TYPE: XR knee limited RT DATE OF EXAM: 11/10/2023 CLINICAL HISTORY: Postoperative evaluation Two views of the right knee are submitted. Identified are changes of total knee arthroplasty with femoral and tibial components appearing well seated. Postsurgical soft tissue changes are noted. Alignment is anatomic.
[2023-11-10 12:34] LABS: Glucose,Whole Blood 184 mg/dL (70-110)
[2023-11-10] MEDS: SODIUM CHLORIDE 0.9% 1,000 ML IV SCH (14:21)
[2023-11-10] MEDS ORDERED: ALBUTEROL NEBULIZED 2.5 MG/3 ML INHALATION PRN (15:27)
[2023-11-10] MEDS ORDERED: ACETAMINOPHEN TAB 325 MG TAB PO PRN (15:27)
[2023-11-10] MEDS: ESTRADIOL 0.1 MG/GM VAGINAL CREAM 42.5 GM TUBE VAGINAL SCH (16:08)
--- NOTE | 2023-11-10 17:10 | P.CONS ---
History of Present Illness - Reason for Consult Consult date: 11/10/23 - History of Present Illness Jacqueline Roberson, is a 78-year-old female patient of Dr. Schilling who was admitted to [facility] by Dr. Grimaldo, and underwent right total knee arthroplasty on 11/10/2023, medical consultation was requested for management while hospitalized. Her past medical history is significant for history of hypertension, history of hyperlipidemia, hypothyroidism, aqz-qabycgo-gmwptbhgp diabetes mellitus, history of coronary artery disease with recent cardiac catheterization in May 2023 that showed nonobstructive coronary artery disease, patient is followed by cardiology and is maintained on aspirin and Plavix. On review of systems patient is alert and oriented 3 in no apparent distress, she is complaining of moderate pain in her knee otherwise she denies any complaints there is no fever or chills no headache or dizziness no chest pain no shortness of breath no cough no nausea or vomiting no abdominal pain no diarrhea no blood in the stools no burning with urination no frequency or urgency and no hematuria. Past Medical History Past Medical History: Asthma, Diabetes Mellitus, Eye Disorder, GERD/Reflux, Hyperlipidemia, Hypertension, Myocardial Infarction (HI), Osteoarthritis (OA), Thyroid Disorder Additional Past Medical History / Comment(s): seasonal allergies. hx. UTI's, left corneal tear, valve problem-card. following Last Myocardial Infarction Date:: unknown History of Any Multi-Drug Resistant Organisms: None Reported Past Surgical History: Appendectomy, Cholecystectomy, Heart Catheterization, Orthopedic Surgery, Tonsillectomy Additional Past Surgical History / Comment(s): marcus. carpal tunnel. Colonoscopy 2011. heart cath 2022 Past Anesthesia/Blood Transfusion Reactions: Postoperative Nausea & Vomiting (PONV) Additional Past Anesthesia/Blood Transfusion Reaction / Comm: Pt has never had a blood transfusion. PONV x1 after CTS Smoking Status: Never smoker - Past Family History Father Family Medical History: Diabetes Mellitus, Myocardial Infarction (HI) Additional Family Medical History / Comment(s): HI in his mid 60's, Parkinsons, Alzhiemers Mother Family Medical History: Cancer Additional Family Medical History / Comment(s): lung cancer Sister(s) Family Medical History: Cancer Medications and Allergies Home Medications Medication Instructions Recorded Confirmed Type Baclofen [Lioresal] 10 mg PO HS 12/16/17 11/10/23 History Levocetirizine Dihydrochloride 5 mg PO HS 12/16/17 11/10/23 History [Xyzal] metFORMIN HCL [Glucophage] 1,000 mg PO DAILY 12/16/17 11/10/23 History sitaGLIPtin [Januvia] 100 mg PO HS 12/16/17 11/10/23 History Aspirin EC [Ecotrin Low Dose] 81 mg PO DAILY 10/22/18 11/10/23 History Calcium Carbonate/Vitamin D3 1 tab PO BID 10/22/18 11/10/23 History [Calcium 600-Vit D3 10 mcg (400 Iu)] Ipratropium [place] 0.06%Nasal 2 spray EA NOSTRIL BID 10/22/18 11/10/23 History [Atrovent Nasal 0.06%] L.acidoph,Paracasei, B.lactis 1 cap PO DAILY 10/22/18 11/10/23 History [Probiotic] Multivitamins, Thera [Multivitamin 1 tab PO DAILY 10/22/18 11/10/23 History (formulary)] [place]-3 Fatty Acids/Fish Oil [Fish 1 cap PO BID 10/22/18 11/10/23 History Oil 1,000 mg Softgel] Acetaminophen Tab [Tylenol] 650 mg PO Q4H PRN 01/28/19 11/10/23 History Chlorthalidone 25 mg PO DAILY 12/25/22 11/10/23 History Famotidine [Pepcid] 20 mg PO HS 12/25/22 11/10/23 History Fluticasone/Vilanterol [Breo 1 puff INHALATION HS 12/25/22 11/10/23 History Ellipta 100-25 Mcg Inhaler] Metoprolol Succinate (ER) [Toprol 25 mg PO DAILY 12/25/22 11/10/23 History XL] Albuterol Inhaler [Ventolin Hfa 1 - 2 puff INHALATION RT-Q6H PRN 06/25/23 11/10/23 History Inhaler] Clopidogrel [Plavix] 75 mg PO HS 06/25/23 11/10/23 History Cranberry 25,000 Mg 25,000 mg PO DAILY 06/25/23 11/10/23 History Dorzolamide HCl/Pf [Dorzolamide 2% 1 drop BOTH EYES BID 06/25/23 11/10/23 History Eye Drop] Estradiol Cream [Estrace Cream 1 gm VAGINAL MOWEFR 06/25/23 11/10/23 History 0.01%] Levothyroxine Sodium [Synthroid] 75 mcg PO DAILY 06/25/23 11/10/23 History Simvastatin [Zocor] 40 mg PO HS 06/25/23 11/10/23 History metFORMIN HCL [Glucophage] 500 mg PO HS 06/25/23 11/10/23 History ramipriL [Altace] 20 mg PO DAILY 11/06/23 11/10/23 History Aspirin [Adult Low Dose Aspirin EC] 81 mg PO BID 30 Days #60 tab 11/10/23 Rx HYDROcodone/APAP 7.5-325MG [[place] 1 - 2 tab PO Q6H PRN #32 tab 11/10/23 Rx 7.5-325] Sennosides [Senokot] 2 tab PO DAILY PRN #60 tablet 11/10/23 Rx Allergies Allergy/AdvReac Type Severity Reaction Status Date / Time codeine Allergy Rash/Hives Verified 11/10/23 08:01 Penicillins Allergy Swelling Verified 11/10/23 08:01 Sulfa (Sulfonamide Allergy Rash/Hives Verified 11/10/23 08:01 Antibiotics) Physical Exam Vitals: Vital Signs Temp Pulse Pulse Resp BP BP BP 11/10/23 14:00 46 L 16 11/10/23 13:45 55 L 16 115/57 11/10/23 13:30 46 L 15 117/56 11/10/23 13:15 47 L 16 124/59 11/10/23 13:00 71 16 125/60 11/10/23 12:45 50 L 16 121/60 11/10/23 12:30 51 L 16 157/64 11/10/23 12:15 56 L 16 148/63 11/10/23 12:03 69 16 135/55 11/10/23 11:48 70 16 138/63 11/10/23 11:33 97.9 F 57 L 16 156/70 11/10/23 08:52 56 L 16 112/54 11/10/23 08:00 97.0 F L 56 L 18 144/71 Pulse Ox 11/10/23 14:00 95 11/10/23 13:45 95 11/10/23 13:30 94 L 11/10/23 13:15 94 L 11/10/23 13:00 93 L 11/10/23 12:45 92 L 11/10/23 12:30 93 L 11/10/23 12:15 92 L 11/10/23 12:03 96 11/10/23 11:48 95 11/10/23 11:33 96 11/10/23 08:52 100 11/10/23 08:00 99 Intake and Output 11/10/23 11/10/23 11/10/23 06:59 14:59 22:59 Intake Total 1401 Output Total 30 Balance 1371 Intake: IV 1401 Output: Estimated Blood Loss 30 Other: Weight 71.9 kg In general patient is alert and oriented x 3 in no distress HEENT head normocephalic and atraumatic Neck is supple no JVD no goiter no lymphadenopathy no carotid bruit Chest examination is clear to auscultation no crackles no wheezing Cardiac exam reveals regular heart sounds S1 and S2 no gallops no murmurs Abdomen is soft nontender no organomegaly with normal bowel sounds Extremity exam reveals no edema no cyanosis or clubbing Neurological examination reveals no gross focal deficits Results Labs: Abnormal Lab Results - Last 24 Hours (Table) 11/10/23 11/10/23 Range/Units 08:25 12:32 POC Glucose (mg/dL) 117 H 184 H (70-110) mg/dL Assessment and Plan Plan: severe osteoarthritis of the right knee status post right total knee arthroplasty on 11/10/2023 underlying history of hypertension Underlying history of hyperlipidemia Underlying history of hypothyroidism Underlying history of diabetes mellitus type 2 Underlying history of coronary artery disease At this time patient was seen and examined Home medications reviewed and reordered Pain medications and DVT prophylaxis as per orthopedic protocol Will follow during this admission for medical management
[2023-11-10 17:21] LABS: Glucose,Whole Blood 193 mg/dL (70-110)
[2023-11-10] MEDS: ONDANSETRON 4 MG/2 ML VIAL IVP PRN (17:23)
[2023-11-10] MEDS: SYMBICORT 80-4.5 MCG INHALER INHALATION SCH (18:44)
[2023-11-10] MEDS: CALCIUM CARB-VIT D 500 MG-5 MCG TAB PO SCH (20:19)
[2023-11-10] MEDS: BACLOFEN 10 MG TAB PO SCH (20:19)
[2023-11-10] MEDS: ATORVASTATIN 20 MG TAB PO SCH (20:19)
[2023-11-10] MEDS: SENNOSIDES-DOCUSATE SODIUM 1 EACH TAB PO SCH (20:19)
[2023-11-10] MEDS: LORATADINE 10 MG TAB PO SCH (20:19)
[2023-11-10] MEDS: LINAGLIPTIN 5 MG TABLET PO SCH (20:19)
[2023-11-10] MEDS: metFORMIN 500 MG TAB PO SCH (20:19)
[2023-11-10] MEDS: IPRATROPIUM BROMIDE 0.06% NASAL SPRAY (15 ML) EA NOSTRIL SCH (20:20)
[2023-11-10] MEDS: FAMOTIDINE 20 MG TAB PO SCH (20:20)
[2023-11-10] MEDS: ASPIRIN 81 MG PO SCH (20:20)
[2023-11-10] MEDS: HYDROcodone/APAP 7.5-325MG 1 EACH TAB PO PRN (20:20)
[2023-11-10] MEDS: DORZOLAMIDE HCL 2% DROPS 10 ML BTL BOTH EYES SCH (20:21)
[2023-11-10 20:23] LABS: Glucose,Whole Blood 154 mg/dL (70-110)
[2023-11-10] MEDS ORDERED: NON FORMULARY DRUG (Omega-3 Fatty Acids/Fish Oil [Fish Oil 1,000 Mg Softgel] 1 EACH Capsul PO SCH (21:00)
[2023-11-11] MEDS: HYDROcodone/APAP 7.5-325MG 1 EACH TAB PO PRN (03:37)
[2023-11-11 06:06] LABS: Glucose,Whole Blood 154 mg/dL (70-110)
[2023-11-11] MEDS: LEVOTHYROXINE 75 MCG TAB PO SCH (06:44)
[2023-11-11] MEDS ORDERED: ASPIRIN 81 MG PO SCH (09:00)
--- NOTE | 2023-11-11 09:06 | P.PN ---
Subjective Progress Note Date: 11/11/23 Jacqueline Roberson, is a 78-year-old female patient of Dr. Schilling who was admitted to [facility] by Dr. Grimaldo, and underwent right total knee arthroplasty on 11/10/2023, medical consultation was requested for management while hospitalized. Her past medical history is significant for history of hypertension, history of hyperlipidemia, hypothyroidism, oiy-ibvldyr-fhuxhcwfj diabetes mellitus, history of coronary artery disease with recent cardiac catheterization in May 2023 that showed nonobstructive coronary artery disease, patient is followed by cardiology and is maintained on aspirin and Plavix. On review of systems patient is alert and oriented 3 in no apparent distress, she is complaining of moderate pain in her knee otherwise she denies any complaints there is no fever or chills no headache or dizziness no chest pain no shortness of breath no cough no nausea or vomiting no abdominal pain no diarrhea no blood in the stools no burning with urination no frequency or urgency and no hematuria. on 11/11/2023 patient is alert and oriented 3 currently sitting up in chair. Patient having some problems with urinary retention. Likely secondary to anesthesia Will order UA to rule out infection.current vital signs temp 98.2, heart 93, respiratory rate 17, blood pressure 104/68 with pulse ox 95% on room air patient denies chest pain or shortness breath. Patient denies nausea vomiting or diarrhea. Objective - Vital Signs Vital signs: Vital Signs Temp 98.2 F 11/11/23 07:30 Pulse 67 11/11/23 08:23 Resp 17 11/11/23 07:30 BP 104/68 11/11/23 08:23 Pulse Ox 95 11/11/23 07:30 FiO2 Intake & Output 11/10/23 11/11/23 11/11/23 18:59 06:59 18:59 Intake Total 1401 940 Output Total 980 600 Balance 421 340 Weight 71.9 kg Intake: IV 1401 Intake, IV Titration 940 Amount Sodium Chloride 0.9% 1, 840 000 ml @ 70 mls/hr IV . [id number] [facility] Rx#:[id number] ceFAZolin 2 gm In Sodium 100 Chloride 0.9% 50 ml @ 100 mls/hr IVPB ONCE PRN Rx# :[id number] Output: Urine 950 600 Uretheral (Lane) 475 600 Estimated Blood Loss 30 - Exam In general patient is alert and oriented x 3 in no distress HEENT head normocephalic and atraumatic Neck is supple no JVD no goiter no lymphadenopathy no carotid bruit Chest examination is clear to auscultation no crackles no wheezing Cardiac exam reveals regular heart sounds S1 and S2 no gallops no murmurs Abdomen is soft nontender no organomegaly with normal bowel sounds Extremity exam reveals no edema no cyanosis or clubbing Neurological examination reveals no gross focal deficits - Labs Labs: Abnormal Lab Results - Last 24 Hours (Table) 11/10/23 11/10/23 11/10/23 Range/Units 12:32 17:19 20:20 POC Glucose (mg/dL) 184 H 193 H 154 H (70-110) mg/dL 11/11/23 Range/Units 06:03 POC Glucose (mg/dL) 154 H (70-110) mg/dL Assessment and Plan Plan: severe osteoarthritis of the right knee status post right total knee arthroplasty on 11/10/2023 underlying history of hypertension Underlying history of hyperlipidemia Underlying history of hypothyroidism Underlying history of diabetes mellitus type 2 Underlying history of coronary artery disease Urinary retention. UA ordered At this time patient was seen and examined Home medications reviewed and reordered Pain medications and DVT prophylaxis as per orthopedic protocol Will follow during this admission for medical management
--- NOTE | 2023-11-11 09:23 | P.PN ---
Progress Note - Text 11/11/23 625am 78-year-old female status post total knee replacement. Patient has an On-Q pump for postop pain control with a solution running at 8 cc an hour with a VAS of 4, dressing clean dry and intact. Plan to continue On-Q pump infusion
[2023-11-11] MEDS: lisinopriL 20 MG TAB PO SCH (10:03)
[2023-11-11] MEDS: CHLORTHALIDONE 25 MG TAB PO SCH (10:09)
[2023-11-11] MEDS: METOPROLOL SUCCINATE (ER) 25 MG TAB.ER.24H PO SCH (10:09)
[2023-11-11] MEDS: LACTOBACILLUS ACIDOPHILUS/PECT 1 EACH CAPSULE PO SCH (10:09)
[2023-11-11] MEDS: MULTIVITAMINS, THERA 1 EACH TAB PO SCH (10:09)
[2023-11-11] MEDS: metFORMIN 500 MG TAB PO SCH (10:09)
[2023-11-11] MEDS: CLOPIDOGREL 75 MG TAB PO SCH (10:09)
[2023-11-11 10:39] LABS: HCT 39.1 % (37.2-46.3); HGB 12.7 g/dL (12.0-15.0); MCH 29.9 pg (27.0-32.0); MCHC 32.5 g/dL (32.0-37.0); Mean Platelet Volume 12.5 FL (9.5-12.2); NRBC Per 100 WBC 0 X 10*3/uL (0.00-0.01); Platelet Count 184 X 10*3/uL (140-440); RBC 4.25 X 10*6/uL (4.10-5.20); RDW 14.3 % (11.5-14.5); WBC 22.87 X 10*3/uL (4.50-10.00)
[2023-11-11 10:49] LABS: ALT 14 U/L (8-44); AST 19 U/L (13-35); Albumin 3.2 g/dL (3.8-4.9); Albumin/Globulin Ratio 2.29 Ratio (1.60-3.17); Alkaline Phosphatase 38 U/L (41-126); BUN/Creat Ratio 23.75 Ratio (12.00-20.00); Blood Urea Nitrogen 28.5 mg/dL (9.0-27.0); Calcium 8.7 mg/dL (8.7-10.3); Carbon Dioxide 19.3 mmol/L (21.6-31.8); Chloride 101 mmol/L (96-109); Globulin 1.4 g/dL (1.6-3.3); Glucose 154 mg/dL (70-110); Potassium 4.5 mmol/L (3.5-5.5); Sodium 134 mmol/L (135-145); Total Bilirubin 0.2 mg/dL (0.3-1.2); Total Protein 4.6 g/dL (6.2-8.2)
--- NOTE | 2023-11-11 10:56 | P.DS ---
Providers Expected date of discharge: 11/11/23 Attending physician: Luis Farrell Consults: 11/10/23 08:57 Consult Physician Routine Consulting Provider: Tram [place] Consult Reason/Comments: medical management Do you want consulting provider notified?: Yes Primary care physician: Raul Hutchins Balboa - Discharge Diagnosis(es) (1) Osteoarthritis of right knee Current Visit: Yes Status: Acute (2) Status post total right knee replacement Current Visit: Yes Status: Acute Hospital Course: This is a 78-year-old female with known history of degenerative arthritis of the right knee. The patient presented for evaluation as an outpatient. After d iscussion and consideration patient elects to proceed with robotic assisted right total knee arthroplasty. The patient is seen preoperatively by Dr. Farrell and medically cleared for surgery by their primary care physician. Patient is admitted to [facility] on 11/10/2023 for robotic assisted right total knee arthroplasty. The procedure is performed without complication or sequelae. The patient is doing well postoperatively. Labs and vital signs are stable on day of discharge. On day of discharge patient's knee incision is healing well. There is minimal erythema. There is no drainage noted at this time. There is minimal soft tissue swelling to the knee. Patient has full foot and ankle motion without difficulty or pain. Calf is soft and nontender to palpation. Neurovascular status to the right lower extremity is intact. Patient is discharged home in good condition. Please see med rec for accurate list of home medications. Plan - Discharge Summary Discharge Rx Participant: No New Discharge Prescriptions: New Aspirin [Adult Low Dose Aspirin EC] 81 mg PO BID 30 Days #60 tab HYDROcodone/APAP 7.5-325MG [[place] 7.5-325] 1 - 2 tab PO Q6H PRN #32 tab PRN Reason: Pain Sennosides [Senokot] 2 tab PO DAILY PRN #60 tablet PRN Reason: Constipation No Action Baclofen [Lioresal] 10 mg PO HS sitaGLIPtin [Januvia] 100 mg PO HS metFORMIN HCL [Glucophage] 1,000 mg PO DAILY Levocetirizine Dihydrochloride [Xyzal] 5 mg PO HS [place]-3 Fatty Acids/Fish Oil [Fish Oil 1,000 mg Softgel] 1 cap PO BID Multivitamins, Thera [Multivitamin (formulary)] 1 tab PO DAILY Calcium Carbonate/Vitamin D3 [Calcium 600-Vit D3 10 mcg (400 Iu)] 1 tab PO BID L.acidoph,Paracasei, B.lactis [Probiotic] 1 cap PO DAILY Aspirin EC [Ecotrin Low Dose] 81 mg PO DAILY Ipratropium [place] 0.06%Nasal [Atrovent Nasal 0.06%] 2 spray EA NOSTRIL BID Acetaminophen Tab [Tylenol] 650 mg PO Q4H PRN PRN Reason: Pain Fluticasone/Vilanterol [Breo Ellipta 100-25 Mcg Inhaler] 1 puff INHALATION HS Famotidine [Pepcid] 20 mg PO HS Chlorthalidone 25 mg PO DAILY [place] 25,000 Mg 25,000 mg PO DAILY metFORMIN HCL [Glucophage] 500 mg PO HS Estradiol Cream [Estrace Cream 0.01%] 1 gm VAGINAL MOWEFR Clopidogrel [Plavix] 75 mg PO HS Metoprolol Succinate (ER) [Toprol XL] 25 mg PO DAILY Levothyroxine Sodium [Synthroid] 75 mcg PO DAILY Simvastatin [Zocor] 40 mg PO HS Dorzolamide HCl/Pf [Dorzolamide 2% Eye Drop] 1 drop BOTH EYES BID Albuterol Inhaler [Ventolin Hfa Inhaler] 1 - 2 puff INHALATION RT-Q6H PRN PRN Reason: Shortness Of Breath ramipriL [Altace] 20 mg PO DAILY Discharge Medication List Baclofen [Lioresal] 10 mg PO HS 12/16/17 [History] Levocetirizine Dihydrochloride [Xyzal] 5 mg PO HS 12/16/17 [History] metFORMIN HCL [Glucophage] 1,000 mg PO DAILY 12/16/17 [History] sitaGLIPtin [Januvia] 100 mg PO HS 12/16/17 [History] Aspirin EC [Ecotrin Low Dose] 81 mg PO DAILY 10/22/18 [History] Calcium Carbonate/Vitamin D3 [Calcium 600-Vit D3 10 mcg (400 Iu)] 1 tab PO BID 10/22/18 [History] Ipratropium [place] 0.06%Nasal [Atrovent Nasal 0.06%] 2 spray EA NOSTRIL BID 10/22/18 [History] L.acidoph,Paracasei, B.lactis [Probiotic] 1 cap PO DAILY 10/22/18 [History] Multivitamins, Thera [Multivitamin (formulary)] 1 tab PO DAILY 10/22/18 [History] [place]-3 Fatty Acids/Fish Oil [Fish Oil 1,000 mg Softgel] 1 cap PO BID 10/22/18 [History] Acetaminophen Tab [Tylenol] 650 mg PO Q4H PRN 01/28/19 [History] Chlorthalidone 25 mg PO DAILY 12/25/22 [History] Famotidine [Pepcid] 20 mg PO HS 12/25/22 [History] Fluticasone/Vilanterol [Breo Ellipta 100-25 Mcg Inhaler] 1 puff INHALATION HS 12/25/22 [History] Metoprolol Succinate (ER) [Toprol XL] 25 mg PO DAILY 12/25/22 [History] Albuterol Inhaler [Ventolin Hfa Inhaler] 1 - 2 puff INHALATION RT-Q6H PRN 06/25/23 [History] Clopidogrel [Plavix] 75 mg PO HS 06/25/23 [History] Cranberry 25,000 Mg 25,000 mg PO DAILY 06/25/23 [History] Dorzolamide HCl/Pf [Dorzolamide 2% Eye Drop] 1 drop BOTH EYES BID 06/25/23 [History] Estradiol Cream [Estrace Cream 0.01%] 1 gm VAGINAL MOWEFR 06/25/23 [History] Levothyroxine Sodium [Synthroid] 75 mcg PO DAILY 06/25/23 [History] Simvastatin [Zocor] 40 mg PO HS 06/25/23 [History] metFORMIN HCL [Glucophage] 500 mg PO HS 06/25/23 [History] ramipriL [Altace] 20 mg PO DAILY 11/06/23 [History] Aspirin [Adult Low Dose Aspirin EC] 81 mg PO BID 30 Days #60 tab 11/10/23 [Rx] HYDROcodone/APAP 7.5-325MG [[place] 7.5-325] 1 - 2 tab PO Q6H PRN #32 tab 11/10/23 [Rx] Sennosides [Senokot] 2 tab PO DAILY PRN #60 tablet 11/10/23 [Rx] Follow up Appointment(s)/Referral(s): [facility] [NON-STAFF] - As Needed (Call [facility] to arrange delivery of the Continuous Passive Motion (CPM) machine. ) [facility] [NON-STA[facility]] - 1-2 Days ([facility] will call you to schedule your in home physical therapy visits. ) Luis Farrell DO [Doctor of Osteopathic Medicine] - 2 Weeks Activity/Diet/Wound Care/Special Instructions: Weightbearing as tolerated with a walker. CPM 5-6h daily as tolerated. Leave dressing intact. Dressing may be removed by home care nurse or by patient in 7 days. Then change dressing twice daily until follow up. May shower with initial dressing intact and after removal. If dressing become saturated, please remove. Recommend use of compression stockings daily until follow up to help prevent swelling and blood clots. May remove at night before sleeping. Please resume Plavix and take aspirin 81mg twice daily for 30 days to prevent blood clots. Please follow up with [facility] and call with any questions or concerns, . Discharge Disposition: HOME WITH HOME HEALTH SERVICES
[2023-11-11 11:16] LABS: Basophils # (A) 0.06 X 10*3/uL (0.00-0.10); Basophils % (A) 0.3 %; Eosinophils # (A) 0.01 X 10*3/uL (0.04-0.35); Eosinophils % (A) 0 %; Lymphocytes # (A) 1.82 X 10*3/uL (0.90-5.00); Monocytes % (A) 10.1 %; Neutrophils # (A) 18.52 X 10*3/uL (1.80-7.70); Neutrophils % (A) 80.9 %; RBC Morphology Normal (Normal)
[2023-11-11 11:45] LABS: Glucose,Whole Blood 173 mg/dL (70-110)
[2023-11-11 14:05] LABS: Appearance,Urine Clear (Clear); Bacteria,Urine Rare /hpf; Bilirubin,Urine Negative (Negative); Blood,Urine Negative (Negative); Color,Urine Yellow; Glucose,Urine (UA) Negative (Negative); Ketones,Urine 1+ (Negative); Leukocyte Esterase,Urine Trace (Negative); Mucus,Urine Rare /hpf; Nitrite,Urine Negative (Negative); Protein,Urine Trace (Negative); Squamous Epithelial Cell,Urine 1 /hpf (0-4); Urobilinogen,Urine <2.0 mg/dL (<2.0); WBC,Urine 2 /hpf (0-5)
--- NOTE | 2023-11-11 15:26 | P.GSCN ---
History of Present Illness Consult date: 11/11/23 Reason for Consult: Urinary retention History of present illness: This is a 78-year-old female that underwent right-sided knee replacement on November 09. Urology is consulted for postoperative urinary retention. Postsurgery patient has been unable to void and has required straight cath x 2 for a postvoid residual of 500 600 mL, subsequently a Lane catheter has been placed secondary to her retention. She indicated she is getting the urge to void but has been unable to void. Denies any dysuria or gross hematuria. No previous history of urinary retention. She does follow-up with Dr. James as an outpatient for recurrent UTIs. Review of Systems - Constitutional Denies fever, Denies weight loss - EENT Ears, nose, mouth and throat: Denies dysphagia - Cardiovascular Denies chest pain, Denies shortness of breath - Respiratory Denies cough, Denies 7 - Gastrointestinal Denies abdominal pain, Denies nausea, Denies vomiting - Genitourinary Genitourinary: Reports difficulty voiding, Denies hematuria - Integumentary Denies rash, Denies unusual bruising - Neurological Denies headaches, Denies syncope Past Medical History Past Medical History: Asthma, Diabetes Mellitus, Eye Disorder, GERD/Reflux, Hyperlipidemia, Hypertension, Myocardial Infarction ([place]), Osteoarthritis (OA), Thyroid Disorder Additional Past Medical History / Comment(s): seasonal allergies. hx. UTI's, left corneal tear, valve problem-card. following Last Myocardial Infarction Date:: unknown History of Any Multi-Drug Resistant Organisms: None Reported Past Surgical History: Appendectomy, Cholecystectomy, Heart Catheterization, Orthopedic Surgery, Tonsillectomy Additional Past Surgical History / Comment(s): marcus. carpal tunnel. Colonoscopy 2011. heart cath 2022 Past Anesthesia/Blood Transfusion Reactions: Postoperative Nausea & Vomiting (PONV) Additional Past Anesthesia/Blood Transfusion Reaction / Comm: Pt has never had a blood transfusion. PONV x1 after CTS Smoking Status: Never smoker - Past Family History Father Family Medical History: Diabetes Mellitus, Myocardial Infarction ([place]) Additional Family Medical History / Comment(s): [place] in his mid 60's, Parkinsons, Alzhiemers Mother Family Medical History: Cancer Additional Family Medical History / Comment(s): lung cancer Sister(s) Family Medical History: Cancer Medications and Allergies Home Medications Medication Instructions Recorded Confirmed Type Baclofen [Lioresal] 10 mg PO HS 12/16/17 11/10/23 History Levocetirizine Dihydrochloride 5 mg PO HS 12/16/17 11/10/23 History [Xyzal] metFORMIN HCL [Glucophage] 1,000 mg PO DAILY 12/16/17 11/10/23 History sitaGLIPtin [Januvia] 100 mg PO HS 12/16/17 11/10/23 History Aspirin EC [Ecotrin Low Dose] 81 mg PO DAILY 10/22/18 11/10/23 History Calcium Carbonate/Vitamin D3 1 tab PO BID 10/22/18 11/10/23 History [Calcium 600-Vit D3 10 mcg (400 Iu)] Ipratropium [place] 0.06%Nasal 2 spray EA NOSTRIL BID 10/22/18 11/10/23 History [Atrovent Nasal 0.06%] L.acidoph,Paracasei, B.lactis 1 cap PO DAILY 10/22/18 11/10/23 History [Probiotic] Multivitamins, Thera [Multivitamin 1 tab PO DAILY 10/22/18 11/10/23 History (formulary)] [place]-3 Fatty Acids/Fish Oil [Fish 1 cap PO BID 10/22/18 11/10/23 History Oil 1,000 mg Softgel] Acetaminophen Tab [Tylenol] 650 mg PO Q4H PRN 01/28/19 11/10/23 History Chlorthalidone 25 mg PO DAILY 12/25/22 11/10/23 History Famotidine [Pepcid] 20 mg PO HS 12/25/22 11/10/23 History Fluticasone/Vilanterol [Breo 1 puff INHALATION HS 12/25/22 11/10/23 History Ellipta 100-25 Mcg Inhaler] Metoprolol Succinate (ER) [Toprol 25 mg PO DAILY 12/25/22 11/10/23 History XL] Albuterol Inhaler [Ventolin Hfa 1 - 2 puff INHALATION RT-Q6H PRN 06/25/23 11/10/23 History Inhaler] Clopidogrel [Plavix] 75 mg PO HS 06/25/23 11/10/23 History Cranberry 25,000 Mg 25,000 mg PO DAILY 06/25/23 11/10/23 History Dorzolamide HCl/Pf [Dorzolamide 2% 1 drop BOTH EYES BID 06/25/23 11/10/23 History Eye Drop] Estradiol Cream [Estrace Cream 1 gm VAGINAL MOWEFR 06/25/23 11/10/23 History 0.01%] Levothyroxine Sodium [Synthroid] 75 mcg PO DAILY 06/25/23 11/10/23 History Simvastatin [Zocor] 40 mg PO HS 06/25/23 11/10/23 History metFORMIN HCL [Glucophage] 500 mg PO HS 06/25/23 11/10/23 History ramipriL [Altace] 20 mg PO DAILY 11/06/23 11/10/23 History Aspirin [Adult Low Dose Aspirin EC] 81 mg PO BID 30 Days #60 tab 11/10/23 Rx HYDROcodone/APAP 7.5-325MG [[place] 1 - 2 tab PO Q6H PRN #32 tab 11/10/23 Rx 7.5-325] Sennosides [Senokot] 2 tab PO DAILY PRN #60 tablet 11/10/23 Rx Allergies Allergy/AdvReac Type Severity Reaction Status Date / Time codeine Allergy Rash/Hives Verified 11/10/23 08:01 Penicillins Allergy Swelling Verified 11/10/23 08:01 Sulfa (Sulfonamide Allergy Rash/Hives Verified 11/10/23 08:01 Antibiotics) Surgical - Exam Vital Signs Temp Pulse Resp BP Pulse Ox 97.0 F L 56 L 18 144/71 99 11/10/23 08:00 11/10/23 08:00 11/10/23 08:00 11/10/23 08:00 11/10/23 08:00 - General no distress, no pain - Eyes normal ocular movement, no pale - ENT normal nares, normal mucosa - Respiratory normal expansion, normal respiratory effort - Abdomen Abdomen: soft, non tender, no distended - Psychiatric oriented to time, oriented to person, oriented to place Results - Labs 11/11/23 06:08 11/11/23 06:08 Abnormal Lab Results - Last 24 Hours (Table) 11/10/23 11/10/23 11/11/23 Range/Units 17:19 20:20 06:03 WBC (4.50-10.00) X 10*3/uL MPV (9.5-12.2) FL Immature Gran # (0.00-0.04) X 10*3/uL Neutrophils # (1.80-7.70) X 10*3/uL Monocytes # (0.20-1.00) X 10*3/uL Eosinophils # (0.04-0.35) X 10*3/uL Sodium (135-145) mmol/L Carbon Dioxide (21.6-31.8) mmol/L Anion Gap (4.00-12.00) mmol/L BUN (9.0-27.0) mg/dL Est GFR (CKD-EPI) (>=60) BUN/Creatinine Ratio (12.00-20.00) Ratio Glucose (70-110) mg/dL POC Glucose (mg/dL) 193 H 154 H 154 H (70-110) mg/dL Total Bilirubin (0.3-1.2) mg/dL Alkaline Phosphatase (41-126) U/L Total Protein (6.2-8.2) g/dL Albumin (3.8-4.9) g/dL Globulin (1.6-3.3) g/dL Urine Protein (Negative) Urine Ketones (Negative) Ur Leukocyte Esterase (Negative) Urine Bacteria (None) /hpf Urine Mucus (None) /hpf 11/11/23 11/11/23 11/11/23 Range/Units 06:08 06:08 11:43 WBC 22.87 H (4.50-10.00) X 10*3/uL MPV 12.5 H (9.5-12.2) FL Immature Gran # 0.16 H (0.00-0.04) X 10*3/uL Neutrophils # 18.52 H (1.80-7.70) X 10*3/uL Monocytes # 2.30 H (0.20-1.00) X 10*3/uL Eosinophils # 0.01 L (0.04-0.35) X 10*3/uL Sodium 134 L (135-145) mmol/L Carbon Dioxide 19.3 L (21.6-31.8) mmol/L Anion Gap 13.70 H (4.00-12.00) mmol/L BUN 28.5 H (9.0-27.0) mg/dL Est GFR (CKD-EPI) 46 L (>=60) BUN/Creatinine Ratio 23.75 H (12.00-20.00) Ratio Glucose 154 H (70-110) mg/dL POC Glucose (mg/dL) 173 H (70-110) mg/dL Total Bilirubin 0.2 L (0.3-1.2) mg/dL Alkaline Phosphatase 38 L (41-126) U/L Total Protein 4.6 L (6.2-8.2) g/dL Albumin 3.2 L (3.8-4.9) g/dL Globulin 1.4 L (1.6-3.3) g/dL Urine Protein (Negative) Urine Ketones (Negative) Ur Leukocyte Esterase (Negative) Urine Bacteria (None) /hpf Urine Mucus (None) /hpf 11/11/23 Range/Units 13:45 WBC (4.50-10.00) X 10*3/uL MPV (9.5-12.2) FL Immature Gran # (0.00-0.04) X 10*3/uL Neutrophils # (1.80-7.70) X 10*3/uL Monocytes # (0.20-1.00) X 10*3/uL Eosinophils # (0.04-0.35) X 10*3/uL Sodium (135-145) mmol/L Carbon Dioxide (21.6-31.8) mmol/L Anion Gap (4.00-12.00) mmol/L BUN (9.0-27.0) mg/dL Est GFR (CKD-EPI) (>=60) BUN/Creatinine Ratio (12.00-20.00) Ratio Glucose (70-110) mg/dL POC Glucose (mg/dL) (70-110) mg/dL Total Bilirubin (0.3-1.2) mg/dL Alkaline Phosphatase (41-126) U/L Total Protein (6.2-8.2) g/dL Albumin (3.8-4.9) g/dL Globulin (1.6-3.3) g/dL Urine Protein Trace H (Negative) Urine Ketones 1+ H (Negative) Ur Leukocyte Esterase Trace H (Negative) Urine Bacteria Rare H (None) /hpf Urine Mucus Rare H (None) /hpf Diabetes panel 11/11/23 Range/Units 06:08 Sodium 134 L (135-145) mmol/L Potassium 4.5 (3.5-5.5) mmol/L Chloride 101 (96-109) mmol/L Carbon Dioxide 19.3 L (21.6-31.8) mmol/L BUN 28.5 H (9.0-27.0) mg/dL Creatinine 1.2 (0.6-1.5) mg/dL Glucose 154 H (70-110) mg/dL Calcium 8.7 (8.7-10.3) mg/dL AST 19 (13-35) U/L ALT 14 (8-44) U/L Alkaline Phosphatase 38 L (41-126) U/L Total Protein 4.6 L (6.2-8.2) g/dL Albumin 3.2 L (3.8-4.9) g/dL Calcium panel 11/11/23 Range/Units 06:08 Calcium 8.7 (8.7-10.3) mg/dL Albumin 3.2 L (3.8-4.9) g/dL Pituitary panel 11/11/23 Range/Units 06:08 Sodium 134 L (135-145) mmol/L Potassium 4.5 (3.5-5.5) mmol/L Chloride 101 (96-109) mmol/L Carbon Dioxide 19.3 L (21.6-31.8) mmol/L BUN 28.5 H (9.0-27.0) mg/dL Creatinine 1.2 (0.6-1.5) mg/dL Glucose 154 H (70-110) mg/dL Calcium 8.7 (8.7-10.3) mg/dL Adrenal panel 11/11/23 Range/Units 06:08 Sodium 134 L (135-145) mmol/L Potassium 4.5 (3.5-5.5) mmol/L Chloride 101 (96-109) mmol/L Carbon Dioxide 19.3 L (21.6-31.8) mmol/L BUN 28.5 H (9.0-27.0) mg/dL Creatinine 1.2 (0.6-1.5) mg/dL Glucose 154 H (70-110) mg/dL Calcium 8.7 (8.7-10.3) mg/dL Total Bilirubin 0.2 L (0.3-1.2) mg/dL AST 19 (13-35) U/L ALT 14 (8-44) U/L Alkaline Phosphatase 38 L (41-126) U/L Total Protein 4.6 L (6.2-8.2) g/dL Albumin 3.2 L (3.8-4.9) g/dL Assessment and Plan Assessment: 78-year-old with postoperative urinary retention, urinary tension was likely secondary to recent anesthetic, pain medications, and her recent immobility from surgery. At this point she can be discharged home with a Lane catheter from urology standpoint -Follow-up as an outpatient with Dr. Tamayo in 5 to 7 days, patient was advised to remove the catheter 6 hours prior to her follow-up -Will discharge home on daily antibiotics given her history of recurrent UTIs, and recent knee replacement
[2023-11-11 15:48] VITALS: BP 119/65; PULSE 65; RESP 19; TEMP 97.8
== END 2023-11-11 16:39 | disposition home health service (06) ==
LOC: OR 07:30 → 4SSUR 11:29 → OR 11-11 16:39
PROVIDERS: ATTEND Orthopaedic Surgery
DX: M17.11 Unilateral primary osteoarthritis, right knee (principal); G89.18 Other acute postprocedural pain; I10 Essential (primary) hypertension; E78.5 Hyperlipidemia, unspecified; E11.9 Type 2 diabetes mellitus without complications; E03.9 Hypothyroidism, unspecified; Z88.0 Allergy status to penicillin; Z88.2 Allergy status to sulfonamides; Z88.5 Allergy status to narcotic agent; Z90.89 Acquired absence of other organs; Z90.49 Acquired absence of other specified parts of digestive tract; Z90.710 Acquired absence of both cervix and uterus; Z82.49 Family history of ischemic heart disease and other diseases of the circulatory system; Z83.3 Family history of diabetes mellitus; Z79.899 Other long term (current) drug therapy; Z98.890 Other specified postprocedural states
CPT/HCPCS: 0055T; 27447; 64448; 64999; 80053; 81001; 85025

== ENCOUNTER → 2024-06-04 | Outpatient (CLI) | payer MEDICARE ==
--- NOTE | 2024-06-04 13:12 | MM ---
Reason for Exam: Follow-up at short interval from prior study. Last screening mammogram was performed 10 month(s) ago. Patient History: Menarche at age 13. First Full-Term at age 25. Left ovary removed at age 73. Right ovary removed at age 73. Hysterectomy at age 73. Postmenopausal. Sister had breast cancer, age 65. Risk Values: Krysta 5 year model risk: 3.4%. NCI Lifetime model risk: 6.0%. Prior Study Comparison: 08/26/2022 Bilateral MG 3D screening mammo w/cad, [facility]. 08/27/2023 Bilateral MG 3D screening mammo w/cad, [facility]. 09/02/2023 Left MG 3D work up w/cad , [facility]. Tissue Density: Left: There are scattered areas of fibroglandular density. Findings: Analyzed By CAD. The previously questioned asymmetric density far posterior superior MLO view has not persisted. Findings suggest superimposition shadow. No significant change from prior exams. Overall Assessment: Benign, BI-RAD 2 Management: Screening Mammogram of both breasts in 6 months. See note below in regards to patient's increased 5 year Krysta score. Results were given to the patient verbally at the time of exam. Patient should continue monthly self-breast exams. A clinical breast exam by your physician is recommended on an annual basis. This exam should not preclude additional follow-up of suspicious palpable abnormalities. Note on Krysta scores and lifetime risk: 1. A Krysta score greater than 3% is considered moderate risk. If this is the case, consider specialist referral to assess eligibility for a risk reducing agent. 2. If overall lifetime risk for the development of breast cancer is 20% or higher, the patient may qualify for future screening with alternating mammogram and breast MRI. [facility], , 06/04/2024 1:09 PM. Electronically signed and approved by: Milena Peacock M.D. Radiologist
== END | disposition home or self-care (01) ==
LOC: RADMAMWWP 12:31
PROVIDERS: ATTEND Internal Medicine
DX: R92.8 Other abnormal and inconclusive findings on diagnostic imaging of breast (principal); R92.323 Mammographic fibroglandular density, bilateral breasts; Z78.0 Asymptomatic menopausal state; Z80.3 Family history of malignant neoplasm of breast; Z90.722 Acquired absence of ovaries, bilateral
CPT/HCPCS: 77065; G0279; 77061

== ENCOUNTER → 2024-09-07 | Outpatient (CLI) | payer MEDICARE ==
[2024-09-07 13:47] VITALS: BP 143/84; PULSE 69; RESP 16; TEMP 97.9
--- NOTE | 2024-09-07 16:00 | P.HPOB ---
History of Present Illness H&P Date: 09/07/24 Chief Complaint: Patient is here for her routine gynecologic exam. This is a 79-year-old G1, P1 with an LMP of 1998. Patient is here to reestablish with this office. She was last seen here in 2014. She underwent a [facility] BSO in [address] Sneed. This was for a symptomatic cystocele and uterine prolapse. She states the surgery went well. She continued to see Dr. Sneed until last year. She is without gynecologic complaints. Review of Systems She states about 8 years ago she was nearly 300 pounds and decided that she needed to take measures to lose weight. She lost over 100 pounds over several years and has kept it off during the past 3 years. She states her weight fluctuates by about 10 pounds. The weight loss was with dietary changes. She denies respiratory, cardiac, or GI problems. She states she has had similar left leg swelling and discomfort since being removed from Plavix about 3 months ago. Past Medical History Past Medical History: Asthma, Coronary Artery Disease (CAD), Diabetes Mellitus, GERD/Reflux, Hyperlipidemia, Hypertension, Thyroid Disorder Additional Past Medical History / Comment(s): seasonal allergies. Hypothyroidism, type 2 diabetes, and osteopenia(used alendronate for 8yr until 2013). PAST COMPLAINT INVESTIGATOR HISTORY: She has no history of STDs. History of Any Multi-Drug Resistant Organisms: None Reported Past Surgical History: Appendectomy, Cholecystectomy, Hysterectomy, Joint Replacement, Orthopedic Surgery, Tonsillectomy Additional Past Surgical History / Comment(s): carpal tunnel. Colonoscopy 2011. heart cath 2022(failed stent placement). TL-BSO 2019, right knee replacement, carpal tunnel surgery. Past Anesthesia/Blood Transfusion Reactions: No Reported Reaction Additional Past Anesthesia/Blood Transfusion Reaction / Comment(s): Pt has never had a blood transfusion. Past Psychological History: No Psychological Hx Reported Additional Psychological History / Comment(s): Pt resides alone. Smoking Status: Never smoker Past Alcohol Use History: None Reported Past Drug Use History: None Reported Additional History: She is single and is not sexually active. She is retired. - Past Family History Father Family Medical History: Diabetes Mellitus, Myocardial Infarction ([place]) Additional Family Medical History / Comment(s): [place] in his mid 60's, Parkinsons, Alzhiemers. . Mother Family Medical History: Cancer Additional Family Medical History / Comment(s): lung cancer. . Sister(s) Family Medical History: Cancer Additional Family Medical History / Comment(s): Breast cancer. Some form of sarcoma as well. . Brother(s) Family Medical History: Myocardial Infarction ([place]) Additional Family Medical History / Comment(s): . Medications and Allergies Home Medications Medication Instructions Recorded Confirmed Type Baclofen [Lioresal] 10 mg PO HS 12/16/17 09/07/24 History Levocetirizine Dihydrochloride 5 mg PO HS 12/16/17 09/07/24 History [Xyzal] metFORMIN HCL [Glucophage] 1,000 mg PO DAILY 12/16/17 09/07/24 History sitaGLIPtin [Januvia] 100 mg PO HS 12/16/17 09/07/24 History Aspirin EC [Ecotrin Low Dose] 81 mg PO DAILY 10/22/18 09/07/24 History Calcium Carbonate/Vitamin D3 1 tab PO BID 10/22/18 09/07/24 History [Calcium 600-Vit D3 10 mcg (400 Iu)] Ipratropium [place] 0.06%Nasal 2 spray EA NOSTRIL BID 10/22/18 09/07/24 History [Atrovent Nasal 0.06%] L.acidoph,Paracasei, B.lactis 1 cap PO DAILY 10/22/18 09/07/24 History [Probiotic] Multivitamins, Thera [Multivitamin 1 tab PO DAILY 10/22/18 09/07/24 History (formulary)] [place]-3 Fatty Acids/Fish Oil [Fish 1 cap PO BID 10/22/18 09/07/24 History Oil 1,000 mg Softgel] Acetaminophen Tab [Tylenol] 650 mg PO Q4H PRN 01/28/19 09/07/24 History Chlorthalidone 25 mg PO DAILY 12/25/22 09/07/24 History Fluticasone/Vilanterol [Breo 1 puff INHALATION HS 12/25/22 09/07/24 History Ellipta 100-25 Mcg Inhaler] Metoprolol Succinate (ER) [Toprol 25 mg PO DAILY 12/25/22 09/07/24 History XL] Albuterol Inhaler [Ventolin Hfa 1 - 2 puff INHALATION RT-Q6H PRN 06/25/23 09/07/24 History Inhaler] Cranberry 25,000 Mg 25,000 mg PO DAILY 06/25/23 09/07/24 History Dorzolamide HCl/Pf [Dorzolamide 2% 1 drop BOTH EYES BID 06/25/23 09/07/24 History Eye Drop] Estradiol Cream [Estrace Cream 1 gm VAGINAL MOWEFR 06/25/23 09/07/24 History 0.01%] Levothyroxine Sodium [Synthroid] 75 mcg PO DAILY 06/25/23 09/07/24 History Simvastatin [Zocor] 40 mg PO HS 06/25/23 09/07/24 History metFORMIN HCL [Glucophage] 500 mg PO HS 06/25/23 09/07/24 History ramipriL [Altace] 20 mg PO DAILY 11/06/23 09/07/24 History Ciprofloxacin HCl [Cipro] 250 mg PO Q12HR #10 tablet 11/11/23 09/07/24 Rx Allergies Allergy/AdvReac Type Severity Reaction Status Date / Time codeine Allergy Rash/Hives Verified 09/07/24 13:33 Penicillins Allergy Swelling Verified 09/07/24 13:33 Sulfa (Sulfonamide Allergy Rash/Hives Verified 09/07/24 13:33 Antibiotics) Exam Vital Signs Temp Pulse Resp BP Pulse Ox 09/07/24 13:41 97.9 F 69 16 143/84 98 Intake and Output 09/07/24 09/07/24 09/07/24 06:59 14:59 22:59 Other: Weight 76.204 kg Height 5 foot 1 inch, weight 168 pounds, BMI 31.7. This is a well-developed well-nourished white female who is alert and oriented times 3 in no acute distress. HEENT: Within normal limits. NECK: Supple without mass or thyromegaly. CHEST AND LUNGS: Clear to auscultation. HEART: Regular rate and rhythm. BREASTS: Are without mass or discharge. AXILLARY EXAM: Negative for adenopathy. BACK: Negative for CVA tenderness. ABDOMEN: Soft, nontender, without palpable masses. PELVIC EXAM: External genitalia appears normal with mild to moderate atrophy. Vagina appears normal with mild to moderate atrophy. There is a grade 2 cystocele. Bimanual examination is negative for mass or tenderness. RECTAL EXAM: Rectovaginal exam is negative for mass or tenderness and is negative for occult blood. EXTREMITIES: Nontender. IMPRESSION: 1. 79-year-old menopausal female status post TLH BSO for benign reasons, with an asymptomatic grade 2 cystocele. 2. History of osteopenia status post 8 years use of alendronate in the past. PLAN: 1. Pap smears have been discontinued. 2. Self breast awareness was discussed with the patient. We have also discussed symptoms associated with inflammatory breast cancer. 3. Screening mammogram will be due in approximately October 2024 and the order slip was given to the patient for this. Her previous bilateral mammogram in 2023 did require a left breast follow-up and this was done on 06/04/2024 and was benign. 4. Osteoporosis prevention was discussed. I have stressed the importance of adequate calcium, vitamin D and regular exercise. Recommended amounts of calcium and vitamin D were also discussed. Her last bone density test was on 08/27/2023. We will plan on repeating this in October 2025. She can do this with her annual exam and next year's mammogram. 5. The patient is doing her colorectal cancer screening with Cologuard testing done through her PCP. 6. Conservative management for her grade 2 cystocele. I have stressed the importance of avoiding holding urine longer than necessary. 7. She was advised to return in one year for her annual well woman exam. She will probably plan on doing this in October 2025, when her mammogram will be due.
== END ==
LOC: WWCWWP 12:56
PROVIDERS: ATTEND Obstetrics & Gynecology
DX: Z12.31 Encounter for screening mammogram for malignant neoplasm of breast (principal); N95.1 Menopausal and female climacteric states; N81.10 Cystocele, unspecified; Z90.710 Acquired absence of both cervix and uterus; Z87.39 Personal history of other diseases of the musculoskeletal system and connective tissue; Z88.5 Allergy status to narcotic agent; Z88.0 Allergy status to penicillin; Z88.2 Allergy status to sulfonamides